=== PATIENT | male | born 1980 | race Caucasian/White ===

== ENCOUNTER 2019-04-14 00:04 | Inpatient (IN) | payer MEDICAID, SELFPAY ==
[2019-04-14] VITALS (17 sets, daily range): BP systolic 107–134; BP diastolic 61–105; PULSE 85–122; RESP 16–31; TEMP 36.2–37.6; O2SAT 92–97; BMI 31.2
--- NOTE | 2019-04-14 00:16 | EKG12_ITS ---
Test Reason : CP Blood Pressure : / mmHG Vent. Rate : 120 BPM Atrial Rate : 120 BPM P-R Int : 138 ms QRS Dur : 090 ms QT Int : 330 ms P-R-T Axes : 031 072 043 degrees QTc Int : 466 ms Sinus tachycardia Possible Left atrial enlargement Nonspecific ST abnormality Abnormal ECG Confirmed by SUSHIL MENSAH, THERESE ([id number]), newspaper editor SNEHA POE ([id number]) on 04/15/2019 10:08:37 AM Referred By: JANETH Confirmed By:THERESE LING MD
--- NOTE | 2019-04-14 00:22 | RAD_ITS ---
STUDY: X-RAY CHEST REASON FOR EXAM: Male, 38 years old. Chest pain. Nausea and headache. TECHNIQUE: AP portable upright COMPARISON: None. FINDINGS: The left lung base is not well seen due to overlying cardiac and chest wall structures. Otherwise the lungs are clear. Cardiac silhouette, franky and mediastinal contours are within normal limits. No acute osseous abnormality. No evidence of free air under the diaphragm. RAD/Chest 1 View (Portable) IMPRESSION: No acute findings. However the left lung base is not well seen and left basilar pneumonia might not be detected on this study. If clinically necessary and if the patient is able, standing PA and lateral chest radiograph would better evaluate. Electronically Signed: Marshall Harp, at 0:41 EST Tel , Service support ,
[2019-04-14 00:34] LABS: Absolute Lymphocyte Count 0.56 X10^3/uL (0.83-4.51); Basophil# 0.02 X10^3/uL; Basophil% 0.2 % (0-1); Eosinophil# 0.01 X10^3/uL; Eosinophils% 0.1 % (0-5); Hematocrit 46.9 % (40-54); Hemoglobin 16.7 g/dL (13.0-16.5); Lymphocyte # 0.56 X10^3/ul (4.0); Lymphocyte % 5.3 % (19-41); Mean Corp Hgb Conc 35.6 g/dL (32-36); Mean Corpuscular Hgb 30.1 pg (27.0-32.0); Mean Corpuscular Volume 84.7 fL (80-94); Monocyte# 1.03 X10^3/uL; Monocyte% 9.7 % (0-10); NRBC Flagged by Analyzer 0 % (0-5); Neutrophil # 8.95 X10^3/uL (2.7-7.7); Neutrophil % 84.3 % (47-70); POSITIVE DIFFERENTIAL YES; Platelet Count 247 K/mm3 (150-450); RBC Distribution Width SD 33.8 fl (35.1-43.9); Red Blood Count 5.54 M/mm3 (4.6-6.2); White Blood Count 10.6 K/mm3 (4.4-11.0)
[2019-04-14 00:35] LABS: Differential Indicated SCAN CRITERIA MET
[2019-04-14 00:49] LABS: Anion Gap 11 (5-15); BUN 5 mg/dL (7-18); BUN/Creat Ratio 9.7 RATIO (10-20); Calcium,Total 9.1 mg/dL (8.5-10.1); Chloride 91 mmol/L (98-107); Creatinine, Serum 0.51 mg/dL (0.70-1.30); EST Glomerular Filtration Rate 193 mL/min (>60); Est Glom Filt Rate - Afr Amer 233 mL/min (>60); Estimated Creatinine Clearance 198.31 ml/min; Glucose 122 mg/dL (74-106); Potassium 3.6 mmol/L (3.5-5.1); Sodium Level 126 mmol/L (136-145)
[2019-04-14 01:07] LABS: Differential Comment SCANNED
[2019-04-14] MEDS: 0.9% Normal Saline 1,000 ML 1000 ML IV (01:18)
[2019-04-14 01:38] LABS: AST(SGOT) 71 U/L (15-37); Alanine Aminotransfer ALT/SGPT 124 U/L (16-61); Albumin, Serum 3.8 g/dL (3.2-5.0); Alkaline Phosphatase 143 U/L (45-117); Bilirubin, Direct 0.51 mg/dL (0.00-0.30); Carbamazepine (Tegretol) 12.8 ug/mL (4.0-12.0); Globulin 4.3 g/dL (2.2-4.2); Lipase 73 U/L (73-393); Protein, Total 8.1 g/dL (6.4-8.2)
[2019-04-14 01:52] LABS: Bacteria 0 SEEN /hpf (None Seen); Mucous, Urine 0 SEEN /hpf (<or=2+); Red Blood Cells-Urine 0 SEEN /hpf (0-5); Squamous Epithelial Cells - UA 0 SEEN /hpf (0-5); White Blood Cells 0 SEEN /hpf (0-5)
[2019-04-14 01:56] LABS: Color, Urine Yellow (Yellow); Glucose, Dipstick Normal (Normal); Leukocyte Esterase-Dipstick Negative /ul (Negative); Nitrite-Dipstick Negative (Negative); Occult Blood-Urine 10 /ul (Negative); Protein-Dipstick 100 mg/dl (Negative); Specific Gravity, Urine 1.015 (1.002-1.030); Urine Bilirubin Dipstick Negative (Negative); Urine Clarity Clear (Clear); Urine Urobilinogen 1 mg/dl (Normal)
[2019-04-14 01:56] LABS: Lactic Acid 0.9 mmol/L (0.4-1.9)
[2019-04-14 01:58] LABS: Ketone-Dipstick 150 mg/dl (Negative)
--- NOTE | 2019-04-14 02:00 | RAD_ITS ---
STUDY: X-RAY CHEST REASON FOR EXAM: Male, 38 years old. Chest pain. Headache and nausea. TECHNIQUE: Lateral chest radiographs. COMPARISON: Frontal radiograph earlier same date. FINDINGS: Lateral view reveals clear lung bases. No acute finding. No evidence of pleural effusion. RAD/Chest 1 View IMPRESSION: Correlating with the frontal radiograph performed earlier there is no evidence of acute cardiopulmonary disease. Electronically Signed: Marshall Harp, at 2:35 EST Tel , Service support ,
--- NOTE | 2019-04-14 04:37 | CT_ITS ---
ACR Level 3 findings have been noted. An addendum which confirms receipt of the report will follow. HISTORY: ABDOM PAIN, NAUSEA, CHEST PAIN, PT PERMANENTLY CONTRACTED, IDEAL POSITIONING IMPOSSIBLE TECHNIQUE: Helically acquired images were obtained of the abdomen and pelvis following the intravenous administration of 100 ML of Isovue-370 Iodinated contrast. 2D reformats. No oral contrast was administered. A radiation dose optimization technique was used for this scan. COMPARISON: No comparison imaging of the abdomen and pelvis FINDINGS: # of images incl. paperwork: 497 LUNG BASES: Small right pleural effusion with minimal basilar atelectasis. Evidence for right hemithorax volume loss compared to the left. CT abdomen: Multilevel degenerative disc disease with facet arthropathy. Scoliosis. Fusion of the anterior longitudinal ligament within the lower thoracic spine. Severe facet arthritis throughout the lower thoracic spine and in the lumbar spine. Shallow acetabulum with remodeling to the femoral heads suggesting the patient is not weightbearing. The gallbladder is enlarged and contains many cholesterol gallstones. No intra-or extrahepatic biliary ductal dilatation perceived. No choledocholithiasis identified. Liver, spleen, pancreas, and adrenal glands, are normal. The kidneys are normal. The aorta is normal. CT pelvis: No ascites is present. The prostate gland is not enlarged. The appendix is not identified. The bladder is is distended to above the umbilicus. I estimate the bladder volume at almost 1 L. There is gaseous distention of loops of colon and small bowel without pathological distention. No bowel wall thickening is perceived CT/Abdomen/Pelvis W IV Cont ONLY IMPRESSION: Distended gallbladder with several cholesterol gallstones suggesting acute cholecystitis. Right hemithorax volume loss with atelectasis and small pleural effusion. Rotoscoliosis. Distended bladder to approximately 1 L in volume. This could be due to a neurogenic bladder and pathologic post void residual. Individualized dose optimization techniques were used for this CT. at 0520 Reported and signed by: Gianfranco Majano MD Electronically Signed: Gianfranco Majano MD at 5:19 EST Tel , Service support ,
--- NOTE | 2019-04-14 05:04 | ED.DCSUM_ITS ---
- ER Visit Summary Date of Service: 04/14/19 Chief Complaint: Chest and epigastric pain along with nausea and fever. History of Present Illness: The patient is a 38 M history of seizure disorder and anxiety. He is on Tegretol along with other medications. According to the patient and his family he had chest and epigastric pain with nausea but without any vomiting or diarrhea. Is been going on since so now is the third day. He has had no diarrhea. No dysuria. No shortness of breath. No history of DVT or PE. No hemoptysis. No new leg swelling or calf pain. Physical Examination: Male no acute distress. Vital signs are stable. His initial temperature is 99.1. He does not look septic or toxic. His pulse ox is 93% on room air no hypoxia. H EENT exam unremarkable. Posterior pharynx moist and pink no erythema or exudate. No trouble swallowing or breathing. No stridor. No drooling. Neck nontender no lymphadenopathy. No meningismus. Lungs clear to auscultation bilaterally. No rales, rhonchi or wheezing. Heart regular rhythm rate about 120 no murmur. Abdomen is soft. Nondistended. Normal bowel sounds. Mild epigastric tenderness. No signs of obstruction. No hernia or masses. No pulsatile mass. No specific right upper or McBurney's point tenderness. No peritoneal signs. Patient moving all 4 extremities. Neurologically is awake. He is alert. He answers questions sometimes his speech is difficult to understand at his baseline. Family is present in room and helping with the history. Test Results: EKG is a sinus tachycardia rate of 120 with no acute signs of IN or ischemia. Chest x-ray shows no acute abnormality 2 views read both myself and the radiologist. CBC shows a white count of 10. Hemoglobin is 16. No bands. Chemistries show a sodium of 126 otherwise normal BUN and creatinine and gap. Liver enzymes are slightly elevated. Lipase is normal UA negative other than serum ketones consistent with dehydration. Troponin is normal. Tegretol level is slightly supratherapeutic at 12.8. Blood cultures are pending and lactic acid is normal at 0.9. He had no significant old labs available for comparison. CAT scan abdomen pelvis with IV contrast only showed multiple gallstones and was consistent with acute cholecystitis. He also had a distended bladder. We did a bladder scan it was over 400 cc and the nurses will place a Cota catheter. He was able to urinate prior to the Cota catheter. Once the Cota catheter was placed he has put out 800 cc of urine through the catheter already. He continues to drain. Emergency Department Course and Treatment: 38-year-old male with reported fever at home abdominal and chest pain. This could obviously be from infectious etiologies. Pneumonia versus atypical cortical presentation versus more likely abdominal pain could be pancreatitis, liver disease gallstones or other etiologies. His labs showed elevated liver enzymes and a mild hyponatremia. A CT abdomen pelvis has been obtained we will waiting for the official read. Patient was treated with a liter normal saline, IV morphine, IV Zofran for nausea and IV Zosyn. Patient treated with a liter normal saline. On repeat exam at 4:37 AM is really no significant change. I went over all test results with he and his family. Treatment Plan: I discussed the patient's diagnosis and test results with the family. I have already spoken to Dr. Juan Alanis on-call for general surgery. He is actually arriving at the hospital shortly and will come in the emergency department evaluate the patient for admission. I also have the hospitalist on page. Disposition: [] Impression: Epigastric abdominal pain Elevated liver enzymes Acute gallstones with acute cholecystitis Hyponatremia with a sodium of 126 Distended bladder secondary to urinary retention This note was generated with [facility] [employer] dictation software. It may contain incorrect words, spelling, and punctuation that were not noted in review of the chart prior to signing ED Disposition - Plan for ED Patient:
[2019-04-14] MEDS: Ondansetron 4 MG/2 ML Vial IV ×2 (05:45→21:13)
[2019-04-14] MEDS: Morphine 4 MG/ML Syringe IV (05:46)
--- NOTE | 2019-04-14 06:03 | HP.PCM_ITS ---
Problem List (1) Cholecystitis, acute with cholelithiasis Status: Acute Qualifiers: Biliary obstruction: without biliary obstruction Qualified Code(s): K80.00 - Calculus of gallbladder with acute cholecystitis without obstruction (2) Cerebral palsy Status: Acute Qualifiers: Cerebral palsy type: spastic quadriplegic Qualified Code(s): G80.0 - Spastic quadriplegic cerebral palsy (3) Seizure disorder Status: Acute (4) Urinary retention Status: Acute (5) Degenerative disc disease Status: Acute History of Present Illness Date of Admission: 04/14/19 The patient is a 38 year old M who has not had a normal appetite for the past 2 weeks. For the past 3 days he has been complaining of abdominal pain and yesterday afternoon was absolutely moaning and abdominal pain. Fever was noted as well. He was brought to the emergency room at midnight. He was noted to have a pulse ox of 93% on room air and he was tachycardic to 120. He is hemoconcentrated to a hemoglobin of 16.7. Left shift of 84% neutrophils. Liver function tests are abnormal with a total bilirubin 1.3 direct room 0.5 AST 71 ALT 124 alkaline phosphatase [address] scan was done multiple abnormalities. He has a right pleural effusion with bibasilar atelectasis and right hemithorax volume loss. Multiple areas of degenerative disc disease. Gallbladder is enlarged control contains multiple stones. No choledocholithiasis or ductal dilatation identified. No ascites identified. The urinary bladder however is distended to above the umbilicus. This estimated to have 1 L of fluid He has not had previous abdominal surgery. He is not able to communicate clearly with description of his illness. By parents he has typically normal stool once daily. He has not had a bowel movement for 3 days Past Medical History Allergies No Known Allergies Allergy (Verified 04/14/19 00:10) Home Medications: Ambulatory Orders Medication Instructions Recorded Carbamazepine [Tegretol] 200 mg PO BIDCM 04/14/19 Lorazepam 1 mg PO BID 04/14/19 Quetiapine Fumarate [Seroquel] 50 mg PO BID 04/14/19 Surgical History: - - History of left hip dislocation requiring surgery approximately age 11 Smoking Status: Never smoker Tobacco Use: Cigarettes Review of Systems Constitutional: Reports: Anorexia Cardiovascular: Reports: - - Low chest epigastric pain Respiratory: Denies: Cough Gastrointestinal: Reports: Abdominal Pain Comment: No history of DVT VTE Information - Inpt Only VTE Present on Admission: No Patient Problems: Active and Suspected Problems Cholecystitis, acute with cholelithiasis (Acute) Cerebral palsy (Acute) Seizure disorder (Acute) Urinary retention (Acute) Degenerative disc disease (Acute) - Physical Exam Vitals/I&O's: Vital Signs Temp Pulse Resp BP Pulse Ox 99.6 F H 111 H 24 H 131/98 H 97 04/14/19 05:59 04/14/19 05:59 04/14/19 05:59 04/14/19 05:59 04/14/19 05:59 Oxygen Flow Rate (L/min) 2 Oxygen Delivery Method Room Air Weight: 211 lb 6.773 oz Body Mass Index (BMI) 31.2 Intake and Output for Last 24 Hours 04/12/19 04/13/19 04/14/19 23:59 23:59 23:59 Intake Total 1000 / 1000 Output Total 400 / 400 Balance 600 / 600 General: Alert HEENT: - - Neck is supple, carotids are 3+, no gross carotid bruits Oral: Moist Mucosa Lungs: - - Diminished respiratory excursion bilaterally, clear in the apices Cardiovascular: Regular rate, Regular Rhythm Abdomen: Soft, Bowel Sounds Not Present, - - Tender right upper quadrant, no mass Extremities: - - Plastic retraction right upper extremity and bilateral lower extremities Mild nonpitting swelling bilateral lower extremities Neurological: - - I am not able to obtain a consistent history or primary complaint from the patient Laboratory Results 04/14/19 00:20: WBC 10.6, RBC 5.54, Hgb 16.7 H, Hct 46.9, MCV 84.7, MCH 30.1, MCHC 35.6, RDW Std Deviation 33.8 L, RDW Coeff of Robert 11.0 L, Plt Count 247, MPV 9.0, Immature Gran % (Auto) 0.400, Neut % (Auto) 84.3 H, Lymph % (Auto) 5.3 L, [place] % (Auto) 9.7, Eos % (Auto) 0.1, Baso % (Auto) 0.2, Absolute Neuts (auto) 9.0 H, Absolute Lymphs (auto) 0.56 L, Nucleated RBC % 0, Differential Comment SCANNED 04/14/19 00:20: Sodium 126 L, Potassium 3.6, Chloride 91 L, Carbon Dioxide 24.0, Anion Gap 11, BUN 5 L, Creatinine 0.51 L, Estim Creat Clear Calc 198.31, Est GFR (MDRD) Af Amer 233, Est GFR (MDRD) Non-Af 193, BUN/Creatinine Ratio 9.7 L, Glucose 122 H, Calcium 9.1, Troponin I < 0.015 04/14/19 00:20: Total Bilirubin 1.30 H, Direct Bilirubin 0.51 H, AST 71 H, ALT 124 H, Alkaline Phosphatase 143 H, Total Protein 8.1, Albumin 3.8, Globulin 4.3 H, Lipase 73 04/14/19 00:20: Carbamazepine 12.8 H 04/14/19 01:09: Lactic Acid 0.9 04/14/19 01:46: Urine Color Yellow, Urine Clarity Clear, Urine pH 8.0, Ur Specific [place] 1.015, Urine Protein 100 H, Urine Glucose (UA) Normal, Urine Ketones 150 H, Urine Occult Blood 10 H, Urine Nitrite Negative, Urine Bilirubin Negative, Urine Urobilinogen 1 H, Ur Leukocyte Esterase Negative, Urine RBC 0 SEEN, Urine WBC 0 SEEN, Ur Squamous Epith Cells 0 SEEN, Urine Bacteria 0 SEEN, Urine Mucus 0 SEEN Current Medications Piperacillin Sod/Tazobactam (Sod 4.5 gm/ Sodium Chloride) 100 mls @ 200 mls/hr IV X1 ONE Stop: 04/14/19 06:09 Assessment/Plan All Active Problems Cholecystitis, acute with cholelithiasis (Acute) Cerebral palsy (Acute) Seizure disorder (Acute) Urinary retention (Acute) Degenerative disc disease (Acute) 38-year-old gentleman with a 2-week history of anorexia 3-day history of severe abdominal pain with fever. Findings on CT imaging and laboratory consistent with acute cholecystitis cholelithiasis. Unfortunately the patient is not able to participate in his description of illness or wellbeing. He is accompanied by his parents I recommended them a laparoscopic cholecystectomy with selective cholangiography. I have discussed technique, benefit, risks, alternatives. No guarantees of success have been offered. We discussed possible conversion to an open technique. We discussed possible inability to perform the cholecystectomy and have to convert to a drainage procedure. They have had an opportunity to ask and have questions answered. It appears that the patient's been unwell to some degree for 2 weeks and acutely ill for 3 days. We will proceed directly today with surgery. The patient has severe urinary retention to a liter. Cota catheter was placed. Urologic consultation will be required. The patient has enough medical c omorbidities and illnesses that I will consult hospitalist services to assist with medical management. Juan Alanis M.D., F.A.C.S.
--- NOTE | 2019-04-14 07:19 | DCINST_ITS ---
Discharge Diet: Light diet - advance as tolerated - if you have questions about your diet instructions, please talk to you doctor. Discharge Activity: May Not Drive - for 1 week or while taking narcotic pain medicine., - - May sponge bathe. Please do not tub bathe for at least 3 days to allow the drain site to completely heal. May shower in (days): 1 Lifting Restrictions: 10 pounds Call your doctor if your incision/area has: Continuous Slow Oozing, Sudden I ncreased Bleeding, Increased Pain/ Swelling, Increased Redness, Foul Smelling Discharge Call your doctor if you observe: Fever of 101 or Higher Suture Line Care: Avoid Pulling/Pushing, Avoid Pinching/Bending Additional Dressing/Incision Instructions:: Change or remove dressing in 4 days. Leave steri-strips in place for 1 week. Additional Instructions: If Hector is progressing well then office follow-up at 10 days will not be mandatory. If there are are any concerns then contact in the office or office follow-up with the patient would be appropriate. Please call and contact the office as you need. Allergies/Adverse Reactions: Allergies No Known Allergies Allergy (Verified 04/14/19 00:10) Medications to take at Discharge Carbamazepine [Tegretol] 200 mg PO BIDCM 04/14/19 Lorazepam 1 mg PO BID 04/14/19 Quetiapine Fumarate [Seroquel] 50 mg PO BID 04/14/19 Primary Care Physician: Juan Crenshaw MD [Primary Care Provider] - Test Results: Test results from this visit will be discussed in further detail at your follow- up appointment, if applicable. Please Follow Up With: Juan Alanis MD - [phone] When: Call to make an appointment to be seen in about 10 days.
--- NOTE | 2019-04-14 07:30 | GALL_PTH ---
PATIENT: CAMI COOPER LOC: [facility]3 U#:[id number] AGE/SX: 38/M ROOM: ID320 RE04/14/[address]: Dr. Eulogio Keita MD : 1980 BED: 1 DIS: 04/15/2019 SPEC #: [id number] RECD: 04/15/19 07:27 STATUS: MEDINA REGerri #: [id number] ALO: 04/14/19 07:[address]: Juan Alanis DEPT: SURGICAL PATHOLOGY RECD BY: Denny Lay ENTERED: 04/15/19 08:54 SP TYPE: [facility] SANDERS DR: MD Dr. Eulogio Kapadia MD Dr. Nicholas F Kotsonis, MD Dr. Robert Hart, MD Tissues: Gallbladder, NOS Procedures: Surgery Specimen Level III HEADER OPERATION: Laparoscopic cholecystectomy with IOC PRE-OP DIAGNOSIS: Acute cholecystitis with cholelithiasis TISSUE SUBMITTED: Gallbladder MICROSCOPIC DIAGNOSIS Gallbladder, cholecystectomy: Chronic cholecystitis and cholelithiasis. AM:gigi 04/16/19 MICROSCOPIC DESCRIPTION Slides are reviewed. GROSS DESCRIPTION Received is one container labeled with the patient's name and designated gallbladder. The specimen consists of a gallbladder measuring 11 cm in length and up to 3 cm in diameter. The external surface is pink-dunlap, smooth and glistening for the most part. Focally it is granular, hemorrhagic and contains cautery artifact. The gallbladder contains green-yellow mucoid bile and multiple, multifaceted to round stones measuring in aggregate 6.5 x 4.5 x 3 cm and 2.5 cm in greatest dimension. The mucosa is bile-stained and without any mass lesions. The gallbladder wall measures up to 0.2 cm in thickness. Template Worker sections from the gallbladder and the cystic duct are submitted in one cassette. / SJ:gigi 04/15/19 TC:3 CPT: 46290
--- NOTE | 2019-04-14 07:50 | RAD_ITS ---
CLINICAL HISTORY: Male, 38 years old. Pain PROCEDURE: CHOLANGIOGRAM - intraoperative FLUOROSCOPY TIME (if supplied): (0/14) minutes/seconds TECHNIQUE: ( single cine loop) FINDINGS: Contrast is seen within common bile duct and nondilated intrahepatic biliary ducts and extending into the duodenum. RAD/Cholangiogram/ O R,Initial IMPRESSION: Intraoperative fluoroscopy. Electronically Signed: Tanmay Powell MD at 12:48 EST , Service support ,
[2019-04-14] MEDS: Lactated Ringers 1,000 ML 70 ML IV ×2 (08:45→10:05)
[2019-04-14] MEDS: Bupivacaine Mpf 0.5% 30 ML VIAL (09:13)
--- NOTE | 2019-04-14 09:26 | OP.PCM_ITS ---
Problem List (1) Cholecystitis, acute with cholelithiasis Status: Acute Qualifiers: Biliary obstruction: without biliary obstruction Qualified Code(s): K80.00 - Calculus of gallbladder with acute cholecystitis without obstruction (2) Cerebral palsy Status: Acute Qualifiers: Cerebral palsy type: spastic quadriplegic Qualified Code(s): G80.0 - Spastic quadriplegic cerebral palsy (3) Seizure disorder Status: Acute (4) Urinary retention Status: Acute (5) Degenerative disc disease Status: Acute Report of Operation Date of Procedure: 04/14/19 Pre-Operative Diagnosis: Acute cholecystitis cholelithiasis, severe urinary retention Post-Operative Diagnosis: Acute cholecystitis cholelithiasis, severe urinary retention, umbilical hernia Surgery/Procedure Performed:: Laparoscopic cholecystectomy with cholangiograms Description of Surgical Findings:: Timeout informed consent was obtained. 38-year-old gent was taken the operating. He received Zosyn in the emergency room preoperatively. He underwent general endotracheal intubation esthesia. He was carefully positioned on the operating table to support both arms with careful padding. He has a spastic quadriplegia involving 3 extremities right upper extremity and bilateral lower extremities. They were padded and supported. Then the abdomen was s terilely prepped and draped. 0.5% Marcaine was used as local anesthetic. Throughout the procedure total 30 cc was used. Skin sites were pre- anesthetized. I avoided the umbilical hernia and made a supraumbilical vertical incision sharp dissection carried down through subcu tissue holding sutures of 0 Vicryl placed varies and inserted saline drop test performed the abdomen was insufflated with CO2 to a pressure of 10 to smoker pressure 5-minute trochars were placed in the epigastric mid abdomen right upper quadrant. The gallbladder was noted to be tightly distended had multiple stones significant amount of fibrofatty tissue. With effort the gallbladder was carefully elevated with retraction blunt dissection was used to and at the infundibulum tedious careful aqua dissection blunt dissection was performed to the amount of fibrofatty change and inflammation. Finally the cystic artery and cystic duct identified. Made an incision in the cystic duct through a 14-gauge Angiocath inserted cholangiogram catheter and fluoroscopic and cholangiograms demonstrating very small ductal anatomy free of free fluid in the small bowel. Cholangiogram cath was removed to lock clips were placed on the cystic duct prior to transecting it the cystic artery was clipped twice proximally once distally prior to transecting it gallbladder was dissected free from the liver bed this also was a very tedious. The liver bed was very fragile where needed hemostasis was obtained with electrocautery. Very small amount of bile spillage was rapidly controlled there was [place] no stone spillage. The gallbladder was then immediately placed in a retrieval bag. The right upper quadrant was copiously irrigated and aspirated free of excess fluid and blood. The gallbladder bed was made hemostatic by placing FloSeal followed by 2 pieces of fibrillar. Pressure was then held for hemostasis. A 15 round KEN drain was exited through the right lateral trocar site and was placed to the subhepatic space. Inspection revealed that the liver bed was hemostatic at this time. The gallbladder was exited the umbilicus but slightly enlarging the fascial incision. The fascia was approximated with 2 [id number] sutures of 0 Vicryl. Skin edges approximate interrupted 4 Monocryl subdermal stitches. Steri-Strips Telfa OpSite dressings applied. Sponge and instrument and needle counts were reported to the surgeon be correct. Blood loss proximal 100 cc. Specimens gallbladder. Drains 15 round KEN. He was taken to the recovery area in satisfactory addition without apparent complication Juan Alanis M.D., F.A.C.S. Type of Anesthesia:: General Anesthesiologist: Joan Saenz
[2019-04-14] MEDS: LORazepam 1 MG Tablet PO ×2 (12:30→21:21)
--- NOTE | 2019-04-14 13:43 | PCM.PN.HOSP ---
Patient Problems: Active and Suspected Problems Cholecystitis, acute with cholelithiasis (Acute) Cerebral palsy (Acute) Seizure disorder (Acute) Urinary retention (Acute) Degenerative disc disease (Acute) Subjective: 38-year-old male with a history of cerebral palsy and a seizure disorder presents with right upper quadrant abdominal pain for about [address] weeks[address] He had a CT scan which demonstrated a cystitis and had a lap sheila with a KEN placed today. Medicine was consulted for his history of seizures as well as urinary retention. Prior to surgery at about liter of urine and a Cota was placed successfully. He unfortunately speaks [place] only and therefore the history was obtained through translation by his brother. He is feeling much better today since having surgery. Point of the brother he has not had a seizure in about 4 months and no changes were made to his medication regimen at that time. He is on Tegretol, Ativan, Seroquel. He denies any symptoms of shortness of breath, lightheadedness, dizziness. Vitals/I&O's: Vital Signs Temp Pulse Resp BP Pulse Ox 97.2 F L 85 16 109/61 96 04/14/19 10:28 04/14/19 10:28 04/14/19 10:28 04/14/19 10:28 04/14/19 10:28 Oxygen Flow Rate (L/min) 2 Oxygen Delivery Method Nasal Cannula Weight: 211 lb 6.773 oz Body Mass Index (BMI) 31.2 Intake and Output for Last 24 Hours 04/12/19 04/13/19 04/14/19 23:59 23:59 23:59 Intake Total 1693.33 / 1693.33 Output Total 1575 / 1575 Balance 118.33 / 118.33 General: Alert, Oriented x3, Cooperative, No apparent distress, - - Only speaks comfortably in adduction HEENT: Atraumatic, PERRLA, EOMI, Normocephalic Oral: Dry Mucosa Neck: Supple, No JVD Lungs: Clear to auscultation, Normal air movement, No rhonchi, No wheeze, No rales Cardiovascular: Regular rate, Regular Rhythm, Normal S1, Normal S2, No murmurs Abdomen: Soft, Non-Distended, No Hepato-splenomegaly, Tender - Minimally tender around the incisions Extremities: No edema, Capillary Refill Less than 3 Seconds Skin: No rashes, Incision - Dressings are in place, KEN tubes in place Musculoskeletal: - - Chronic upper and lower extremity deformity secondary to CP Neurological: Neuro grossly intact, Sensory exam intact to light touch and pain Psych/Mental Status: Normal Affect, Appropriate Laboratory Results 04/14/19 00:20: WBC 10.6, RBC 5.54, Hgb 16.7 H, Hct 46.9, MCV 84.7, MCH 30.1, MCHC 35.6, RDW Std Deviation 33.8 L, RDW Coeff of Robert 11.0 L, Plt Count 247, MPV 9.0, Immature Gran % (Auto) 0.400, Neut % (Auto) 84.3 H, Lymph % (Auto) 5.3 L, [place] % (Auto) 9.7, Eos % (Auto) 0.1, Baso % (Auto) 0.2, Absolute Neuts (auto) 9.0 H, Absolute Lymphs (auto) 0.56 L, Nucleated RBC % 0, Differential Comment SCANNED 04/14/19 00:20: Sodium 126 L, Potassium 3.6, Chloride 91 L, Carbon Dioxide 24.0, Anion Gap 11, BUN 5 L, Creatinine 0.51 L, Estim Creat Clear Calc 198.31, Est GFR (MDRD) Af Amer 233, Est GFR (MDRD) Non-Af 193, BUN/Creatinine Ratio 9.7 L, Glucose 122 H, Calcium 9.1, Troponin I < 0.015 04/14/19 00:20: Total Bilirubin 1.30 H, Direct Bilirubin 0.51 H, AST 71 H, ALT 124 H, Alkaline Phosphatase 143 H, Total Protein 8.1, Albumin 3.8, Globulin 4.3 H, Lipase 73 04/14/19 00:20: Carbamazepine 12.8 H 04/14/19 01:09: Lactic Acid 0.9 04/14/19 01:46: Urine Color Yellow, Urine Clarity Clear, Urine pH 8.0, Ur Specific [place] 1.015, Urine Protein 100 H, Urine Glucose (UA) Normal, Urine Ketones 150 H, Urine Occult Blood 10 H, Urine Nitrite Negative, Urine Bilirubin Negative, Urine Urobilinogen 1 H, Ur Leukocyte Esterase Negative, Urine RBC 0 SEEN, Urine WBC 0 SEEN, Ur Squamous Epith Cells 0 SEEN, Urine Bacteria 0 SEEN, Urine Mucus 0 SEEN Current Medications Acetaminophen (Tylenol) 650 mg PO Q6H PRN PRN PRN Reason: Pain Score 1-10/10 Hydrocodone Bitart/Acetaminophen ([place] 5mg-325mg) 1 - 2 tablet PO Q4H PRN PRN PRN Reason: Pain Score 1-10/10 [facility] Docusate Sodium (Colace) 100 mg PO BID [facility] Piperacillin Sod/Tazobactam (Sod 3.375 gm/ Sodium Chloride) 50 mls @ 12.5 mls/hr IV Q8 [facility] Stop: 04/15/19 01:59 Lactated Ringer's () 1,000 mls @ 70 mls/hr IV .[id number] [facility] Last Admin: 04/14/19 10:05 Dose: 70 mls/hr Documented by: Lorazepam (Ativan) 1 mg PO BID [facility] Last Admin: 04/14/19 12:30 Dose: 1 mg Documented by: Morphine Sulfate () 2 - 4 mg IV Q2H PRN PRN PRN Reason: Pain Score 1-10/10 Morphine Sulfate () 2 - 4 mg IV Q2H PRN PRN PRN Reason: Pain Score 1-10/10 Ondansetron HCl (Zofran) 4 mg IV Q8H PRN PRN PRN Reason: nausea Quetiapine Fumarate (Seroquel) 50 mg PO BID [facility] Sodium Chloride () 10 - 40 ml IV UD PRN PRN Reason: SALINE FLUSH Tamsulosin HCl (Flomax) 0.4 mg PO DAILY@1730 [facility] STROKE Vital Signs/Narrative: Vital Signs Temp Pulse Resp BP Pulse Ox 04/14/19 10:28 97.2 F L 85 16 109/61 96 04/14/19 10:04 98.9 F 86 18 126/70 H 95 04/14/19 09:45 97 18 119/71 96 Medical Necessity - Tobacco Use Smoking Status: Never smoker Tobacco Use: Cigarettes Assessment/Plan All Active Problems Cholecystitis, acute with cholelithiasis (Acute) Cerebral palsy (Acute) Seizure disorder (Acute) Urinary retention (Acute) Degenerative disc disease (Acute) 1. Acute cholecystitis -Pain management per primary -Continue with Zosyn -Fluids per primary -Diet per primary 2. Urinary retention -To the family this happens on occasion at least it appears to. -We will start Flomax -Can remove Cota tomorrow and try voiding trial -If that fails would consult urology at that time for outpatient follow-up 3. Seizure disorder/CP -This appears to be stable per the family -Continue with Tegretol and Ativan as well as Seroquel -He is not showing any signs at this time of toxicity and this has been a stable dose for him 4. Constipation -He does go fairly regularly but it can be a struggle -We will add Colace and monitor DVT: SCDs Code Visit OBSV E&M: 31009 Subsequent observation care L3
[2019-04-14] MEDS: 0.9% Saline Lock 10 ML Syringe IV ×4 (14:04→21:13)
[2019-04-14] MEDS: Tamsulosin HCl 0.4 MG Capsule PO (16:43)
[2019-04-14] MEDS: carBAMazepine 200 MG Tablet PO (16:43)
[2019-04-14] MEDS: Lactated Ringers 1,000 ML 100 ML IV (16:45)
[2019-04-14] MEDS: BENZOCAINE/MENTHOL 1 LOZENGE MUCOUS MEM ×2 (16:52→19:48)
[2019-04-14] MEDS: Morphine 2 MG/ML Syringe IV ×2 (17:14→21:13)
--- NOTE | 2019-04-14 20:10 | NURSING ---
Radha DELUNA advised that pt was c/o chest pain. VS are stable. When I went back to the room, the family verified pt's complaint that he was hurting in his sternal area which is where the pt was pointing. [facility] notified of need for EKG.
--- NOTE | 2019-04-14 20:55 | EKG12_ITS ---
Test Reason : CP Blood Pressure : / mmHG Vent. Rate : 099 BPM Atrial Rate : 099 BPM P-R Int : 124 ms QRS Dur : 090 ms QT Int : 336 ms P-R-T Axes : 027 -10 068 degrees QTc Int : 431 ms Normal sinus rhythm Nonspecific ST and T wave abnormality Abnormal ECG Confirmed by PARIS MENSAH, KVNG ([id number]), senior editor NOY CHAMBERLAIN ([id number]) on 04/16/2019 10:28:15 AM Referred By: AGVIOTA Confirmed By:KVNG TOLEDO MD
[2019-04-14] MEDS: Pantoprazole Sodium 40 MG Tablet PO (21:21)
[2019-04-14] MEDS: QUEtiapine 25 MG Tablet 50 MG PO (21:21)
[2019-04-14] MEDS: Docusate Sodium 100 MG Capsule PO (21:22)
[2019-04-15 02:00] VITALS: BP 101/55; PULSE 103; RESP 16; TEMP 37; O2SAT 94
[2019-04-15] MEDS: Lactated Ringers 1,000 ML 100 ML IV (02:32)
[2019-04-15] MEDS: Acetaminophen 325 MG Tablet 650 MG PO ×2 (02:32→13:32)
[2019-04-15 02:55] LABS: Absolute Neutrophil Count 4.4 X10^3/uL (2.0-7.7); Eosinophil# 0.01 X10^3/uL; Eosinophils% 0.1 % (0-5); Hematocrit 37.6 % (40-54); Hemoglobin 12.9 g/dL (13.0-16.5); Lymphocyte % 20.8 % (19-41); Mean Corp Hgb Conc 34.3 g/dL (32-36); Mean Corpuscular Hgb 30.1 pg (27.0-32.0); Mean Corpuscular Volume 87.6 fL (80-94); Mean Platelet Vol. 8.5 fl (6.2-12.0); Monocyte# 0.91 X10^3/uL; Monocyte% 13.5 % (0-10); NRBC Flagged by Analyzer 0 % (0-5); Neutrophil # 4.41 X10^3/uL (2.7-7.7); Neutrophil % 65.5 % (47-70); Platelet Count 199 K/mm3 (150-450); RBC Distribution Width CV 11.6 % (11.6-14.6); RBC Distribution Width SD 37.2 fl (35.1-43.9); Red Blood Count 4.29 M/mm3 (4.6-6.2); White Blood Count 6.7 K/mm3 (4.4-11.0)
[2019-04-15 03:15] LABS: ALB/GLOB Ratio 0.8 RATIO (0.9-2.4); AST(SGOT) 64 U/L (15-37); Alanine Aminotransfer ALT/SGPT 139 U/L (16-61); Albumin, Serum 2.8 g/dL (3.2-5.0); Alkaline Phosphatase 104 U/L (45-117); Anion Gap 10 (5-15); BUN 6 mg/dL (7-18); BUN/Creat Ratio 14.4 RATIO (10-20); Calcium,Total 8.2 mg/dL (8.5-10.1); Chloride 103 mmol/L (98-107); Creatinine, Serum 0.42 mg/dL (0.70-1.30); EST Glomerular Filtration Rate 244 mL/min (>60); Est Glom Filt Rate - Afr Amer 295 mL/min (>60); Estimated Creatinine Clearance 240.81 ml/min; Globulin 3.3 g/dL (2.2-4.2); Glucose 93 mg/dL (74-106); Potassium 3.3 mmol/L (3.5-5.1); Protein, Total 6.1 g/dL (6.4-8.2); Sodium Level 138 mmol/L (136-145)
--- NOTE | 2019-04-15 05:20 | PCM.PN.BLA ---
Progress Note Notified of patient's complaints of chest pain. Reflex EKG done showed T wave changes in the anterior lateral leads. Will trend troponins, 2D echo, consider cardiology consult if T wave changes still persistent. STROKE Vital Signs/Narrative: Vital Signs Temp Pulse Resp BP Pulse Ox 04/15/19 02:00 98.6 F 103 H 16 101/55 L 94
[2019-04-15 05:30] VITALS: BP 122/68; PULSE 104; RESP 18; TEMP 36.8; O2SAT 93
--- NOTE | 2019-04-15 05:55 | EKG12_ITS ---
Test Reason : AM EKG Blood Pressure : / mmHG Vent. Rate : 107 BPM Atrial Rate : 107 BPM P-R Int : 132 ms QRS Dur : 090 ms QT Int : 356 ms P-R-T Axes : 029 -10 030 degrees QTc Int : 475 ms Sinus tachycardia Nonspecific T wave abnormality Abnormal ECG When compared with ECG of 14-APR-2019 20:22, MANUAL COMPARISON REQUIRED, DATA IS UNCONFIRMED Confirmed by PARIS MENSAH, KVNG ([id number]), art editor NOY CHAMBERLAIN ([id number]) on 04/16/2019 10:27:35 AM Referred By: MATEO Confirmed By:KVNG TOLEDO MD
--- NOTE | 2019-04-15 06:54 | PCM.PN.SRG ---
Patient Problems: Active and Suspected Problems Cholecystitis, acute with cholelithiasis (Acute) Cerebral palsy (Acute) Seizure disorder (Acute) Urinary retention (Acute) Degenerative disc disease (Acute) Subjective: No specific complaints today. Sore throat is improved. Chest discomfort improved. Abdominal discomfort improved. - Physical Exam Vitals/I&O's: Vital Signs Temp Pulse Resp BP Pulse Ox 98.2 F 104 H 18 122/68 H 93 04/15/19 05:30 04/15/19 05:30 04/15/19 05:30 04/15/19 05:30 04/15/19 05:30 Oxygen Flow Rate (L/min) 2 Oxygen Delivery Method Room Air Weight: 211 lb 6.773 oz Body Mass Index (BMI) 31.2 Intake and Output for Last 24 Hours 04/13/19 04/14/19 04/15/19 23:59 23:59 23:59 Intake Total 2895.66 / 3095.66 1378.33 / 1378.33 Output Total 2055 / 2330 445 / 445 Balance 840.66 / 765.66 933.33 / 933.33 Abdomen: Bowel Sounds Present, Soft, Non Tender - Minimal KEN output, nonbilious Laboratory Results 04/14/19 21:03: Troponin I < 0.015 04/14/19 23:50: Troponin I < 0.015 04/15/19 02:40: WBC 6.7, RBC 4.29 L, Hgb 12.9 L, Hct 37.6 L, MCV 87.6, MCH 30.1, MCHC 34.3, RDW Std Deviation 37.2, RDW Coeff of Robert 11.6, Plt Count 199, MPV 8.5, Immature Gran % (Auto) 0.100, Neut % (Auto) 65.5, Lymph % (Auto) 20.8, [place] % (Auto) 13.5 H, Eos % (Auto) 0.1, Baso % (Auto) 0.0, Absolute Neuts (auto) 4.4, Absolute Lymphs (auto) 1.40, Nucleated RBC % 0 04/15/19 02:40: Sodium 138, Potassium 3.3 L, Chloride 103, Carbon Dioxide 25.0, Anion Gap 10, BUN 6 L, Creatinine 0.42 L, Estim Creat Clear Calc 240.81, Est GFR (MDRD) Af Amer 295, Est GFR (MDRD) Non-Af 244, BUN/Creatinine Ratio 14.4, Glucose 93, Calcium 8.2 L, Total Bilirubin 0.80, AST 64 H, ALT 139 H, Alkaline Phosphatase 104, Total Protein 6.1 L, Albumin 2.8 L, Globulin 3.3, Albumin/Globulin Ratio 0.8 L 04/15/19 02:40: Troponin I < 0.015 Current Medications Acetaminophen (Tylenol) 650 mg PO Q6H PRN PRN PRN Reason: Pain Score 1-10/10 Last Admin: 04/15/19 02:32 Dose: 650 mg Documented by: Hydrocodone Bitart/Acetaminophen ([place] 5mg-325mg) 1 - 2 tablet PO Q4H PRN PRN PRN Reason: Pain Score 1-10/10 [facility] Last Admin: 04/14/19 16:43 Dose: 200 mg Documented by: Docusate Sodium (Colace) 100 mg PO BID [facility] Last Admin: 04/14/19 21:22 Dose: 100 mg Documented by: Lactated Ringer's () 1,000 mls @ 100 mls/hr IV .Q10H [facility] Last Admin: 04/15/19 02:32 Dose: 100 mls/hr Documented by: Lorazepam (Ativan) 1 mg PO BID [facility] Last Admin: 04/14/19 21:21 Dose: 1 mg Documented by: Morphine Sulfate () 2 - 4 mg IV Q2H PRN PRN PRN Reason: Pain Score 1-10/10 Last Admin: 04/14/19 21:13 Dose: 2 mg Documented by: Morphine Sulfate () 2 - 4 mg IV Q2H PRN PRN PRN Reason: Pain Score 1-10/10 Nitroglycerin (Nitrostat) 0.4 mg SUBLINGUAL Q5M PRN PRN Reason: CARDIAC/CHEST PAIN Ondansetron HCl (Zofran) 4 mg IV Q8H PRN PRN PRN Reason: nausea Last Admin: 04/14/19 21:13 Dose: 4 mg Documented by: Pantoprazole Sodium (Protonix) 40 mg PO DAILY [facility] Last Admin: 04/14/19 21:21 Dose: 40 mg Documented by: Quetiapine Fumarate (Seroquel) 50 mg PO BID [facility] Last Admin: 04/14/19 21:21 Dose: 50 mg Documented by: Sodium Chloride () 10 - 40 ml IV UD PRN PRN Reason: SALINE FLUSH Last Admin: 04/14/19 21:13 Dose: 20 ml Documented by: Tamsulosin HCl (Flomax) 0.4 mg PO DAILY@1730 [facility] Last Admin: 04/14/19 16:43 Dose: 0.4 mg Documented by: Throat Lozenges (Cepacol Sore Throat Lozenge) 1 lozenge MUCOUS MEM Q1H PRN PRN PRN Reason: SORE THROAT Last Admin: 04/14/19 19:48 Dose: 1 lozenge Documented by: Medical Necessity - Tobacco Use Smoking Status: Never smoker Tobacco Use: Cigarettes Assessment/Plan All Active Problems Cholecystitis, acute with cholelithiasis (Acute) Cerebral palsy (Acute) Seizure disorder (Acute) Urinary retention (Acute) Degenerative disc disease (Acute) Cota catheter is been removed. I suspect the patient will continue to have significant retention and catheter will need to be replaced and outpatient urology follow-up scheduled KEN is removed. Laboratory has been reviewed and is stable. Patient ready for surgical discharge Episode of chest discomfort although quite typical with laparoscopic work with normal troponins it is unclear to me the significance of the EKG findings. Will defer to medicine as to whether inpatient or further outpatient evaluation requires investigation.
--- NOTE | 2019-04-15 08:05 | CON.PCM_ITS ---
Reason for Consult Date of Consultation: 04/15/19 Reason for Consultation: Abnormal EKG History of Present Illness: The patient is a 38 year old M with a history of cerebral palsy and a seizure disorder presents with right upper quadrant abdominal pain for about 2 weeks. He had a CT scan which demonstrated a cholecystitis and had a laparoscopic cholecystectomy with KEN drain placement. Medicine was consulted for his history of seizures as well as urinary retention. Prior to surgery at about liter of urine and a Cota was placed successfully. He unfortunately speaks [place] only and therefore the history was obtained through translation by his brother. He is feeling much better today since having surgery. Point of the brother he has not had a seizure in about 4 months and no changes were made to his medication regimen at that time. He is on Tegretol, Ativan, Seroquel. He denies any symptoms of shortness of breath, lightheadedness, dizziness. He had an episode of atypical chest discomfort yesterday an EKG was done nonspecific EKG changes were noted and cardiology was called for further evaluation and management. He has had no further chest pain and no previous cardiac history. Past Medical History Allergies/Adverse Reactions: Allergies No Known Allergies Allergy (Verified 04/14/19 00:10) Home Medications: Ambulatory Orders Medication Instructions Recorded Carbamazepine [Tegretol] 200 mg PO BIDCM 04/14/19 Lorazepam 1 mg PO BID 04/14/19 Quetiapine Fumarate [Seroquel] 50 mg PO BID 04/14/19 Surgical History: cholecystectomy, - - History of left hip dislocation requiring surgery approximately age 11 Lives: With Family Smoking Status: Never smoker Tobacco Use: Cigarettes Alcohol: None Drugs: None Review of Systems - Review of Systems General: Reports: Fever. Denies: Fatigue, Night Sweats HEENT: Denies: Vision Change Cardiovascular: Reports: Chest Discomfort. Denies: Shortness of Breath, Orthopnea, PND, Peripheral Edema, Palpitations, Lightheadedness, Dizziness, Near Syncope, Syncope Respiratory: Denies: Cough, Sputum Production, Hemoptysis Gastrointestinal: Denies: Hematemesis, Hematochezia, Melena Genitourinary: Denies: Dysuria, Hematuria Muscoloskeletal: Denies: Myalgias Skin: Denies: Rash Neurological: Denies: Dizziness Psychiatric: Denies: Anxiety Endocrine: Denies: Heat Intolerance Hematologic/ Lymphatic: Denies: Anemia Subjectve: Pleasant gentleman in no distress does not look uncomfortable Objective: Vital Signs Temp Pulse Resp BP Pulse Ox 98.2 F 104 H 18 122/68 H 93 04/15/19 05:30 04/15/19 05:30 04/15/19 05:30 04/15/19 05:30 04/15/19 05:30 Oxygen Flow Rate (L/min) 2 Oxygen Delivery Method Room Air Weight: 211 lb 6.773 oz Body Mass Index (BMI) 31.2 Intake and Output for Last 24 Hours 04/13/19 04/14/19 04/15/19 23:59 23:59 23:59 Intake Total 2895.66 / 3095.66 1378.33 / 1378.33 Output Total 2055 / 2330 445 / 445 Balance 840.66 / 765.66 933.33 / 933.33 General: Awake, Alert, Cooperative HEENT: PERRL, EOMI, Sclera Non Icteric Neck: Supple, Good ROM, No Lymph Node Enlargement Lungs: Clear to auscultation Cardiovascular: Regular Rhythm, Normal S1, Normal S2, No Murmurs, No Rubs, No Gallops Vascular: No Carotid Bruits, Normal Femoral Pulses, Normal Radial Pulses, Normal Dorsalis Pedal Pulse, Normal Posterior Tibial Pulses Abdomen: Bowel Sounds Present, Soft, Non Tender, No HSM, No Organomegaly Extremities: No Cyanosis, No Clubbing, No edema Musculoskeletal: No Erythema Skin: No Rashes Lymphatic: No Lymph Node Enlargement Neurological: No Focal Motor or Sensory Deficit Psych/Mental Status: Appropriate 04/14/19 21:03: Troponin I < 0.015 04/14/19 23:50: Troponin I < 0.015 04/15/19 02:40: WBC 6.7, RBC 4.29 L, Hgb 12.9 L, Hct 37.6 L, MCV 87.6, MCH 30.1, MCHC 34.3, Plt Count 199, MPV 8.5, Immature Gran % (Auto) 0.100, Neut % (Auto) 65.5, Lymph % (Auto) 20.8, [place] % (Auto) 13.5 H, Eos % (Auto) 0.1, Baso % (Auto) 0.0, Absolute Neuts (auto) 4.4, Nucleated RBC % 0 04/15/19 02:40: Sodium 138, Potassium 3.3 L, Chloride 103, Carbon Dioxide 25.0, Anion Gap 10, BUN 6 L, Creatinine 0.42 L, Est GFR (MDRD) Af Amer 295, Est GFR (MDRD) Non-Af 244, BUN/Creatinine Ratio 14.4, Glucose 93, Calcium 8.2 L, Total Bilirubin 0.80 04/15/19 02:40: Troponin I < 0.015 Rhythm: EKG: ECHO: Stress Test: Cardiac Cath: PCI: CT Surgery: Holter monitor: EPS: PPM: CXR: Chest CT Scan: Assessment/Plan 1. Atypical chest pain with nonspecific EKG changes * He presents postoperatively with atypical chest discomfort and nonspecific EKG changes. He did have some T wave inversion noted in lead V2 at 20:22 hrs. Repeat on April 15 at 5:20 AM does not demonstrate persistence of these ch anges and there is a poor baseline. I suspect the above is secondary to his GI issues as well as hypokalemia. * Would recommend replacement of his potassium * At this point in time I would not recommend any further EKGs and no further work-up of the above. His cardiac troponin enzymes are normal which is reassuring and he has had no previous cardiac history. I have discussed the above with the patient's family. * * Thank you for allowing me to participate in the care of your patient. Please don't hesitate to call if any issues arise
[2019-04-15 08:48] VITALS: BP 103/66; PULSE 111; RESP 16; TEMP 36.9; O2SAT 91
[2019-04-15] MEDS: LORazepam 1 MG Tablet PO (09:02)
[2019-04-15] MEDS: QUEtiapine 25 MG Tablet 50 MG PO (09:02)
[2019-04-15] MEDS: Pantoprazole Sodium 40 MG Tablet PO (09:02)
[2019-04-15] MEDS: carBAMazepine 200 MG Tablet PO (09:03)
[2019-04-15] MEDS: Docusate Sodium 100 MG Capsule PO (09:03)
--- NOTE | 2019-04-15 10:20 | CASEMGMT ---
RN DAVID Face to Face with patient for initial transition planning/care coordination assessment. RN CM introduced self and role at [facility]. Patient lying in bed, alert, parents at bedside. Mother willing to participate in assessment and is able to answer all questions appropriately. Care providers, pharmacy, and demographics verified. Parents wish to discharge home, denies need for home health at this time. Mother states she has no further needs or concerns at this time. CM to follow for discharge planning needs that may arise. PCP: Den Specialists: none Preferred Pharmacy: [facility] Insurance: [employer] Prescription Benefit: yes Living Will/HPOA: yes, mother Cheryl Blood LNOK: parents Living Arrangements: Patient lives with parents who care for him. Transportation: parents DME/HHC: Patient has mihaela system and wheelchair at home. Parents deny HHC at this time. Disposition Plan: Patient to discharge home with family support and follow-up plans in place. Jennifer HOLT, RN, CM
[2019-04-15 10:35] VITALS: BP 129/66; PULSE 110; RESP 18; TEMP 37; O2SAT 94
--- NOTE | 2019-04-15 10:40 | PCM.PN.HOSP ---
Patient Problems: Active and Suspected Problems Cholecystitis, acute with cholelithiasis (Acute) Cerebral palsy (Acute) Seizure disorder (Acute) Urinary retention (Acute) Degenerative disc disease (Acute) Reason for Visit: Follow-up acute cholecystitis status post cholecystectomy Subjective: Patient is a 38-year-old gentleman with history of cerebral palsy admitted with abdominal pain diagnosed with acute cholecystitis underwent Laparoscopic cholecystectomy with cholangiograms on 04/14/2019 Dr. Juan Alanis Objective: GENERAL: Appears to be comfortable HEENT: Atraumatic; EYES; Anicteric, NECK; supple, normal thyroid, RESPIRATORY: Diminished to auscultation CARDIOVASCULAR: Regular S1 S2, GI: soft, normoactive bowel sounds, : No Renal angle tenderness; EXTREMITIES: No edema, no clubbing, MUSCULOSKELETAL: no muscle waisting NEURO: Awake; SKIN: No Rash PSYCH; Flat affect Vitals/I&O's: Vital Signs Temp Pulse Resp BP Pulse Ox 98.6 F 110 H 18 129/66 H 94 04/15/19 10:35 04/15/19 10:35 04/15/19 10:35 04/15/19 10:35 04/15/19 10:35 Oxygen Flow Rate (L/min) 2 Oxygen Delivery Method Room Air Weight: 95.9 kg Body Mass Index (BMI) 31.2 Intake and Output for Last 24 Hours 04/13/19 04/14/19 04/15/19 23:59 23:59 23:59 Intake Total 2895.66 / 3095.66 1378.33 / 1378.33 Output Total 2055 / 2330 445 / 445 Balance 840.66 / 765.66 933.33 / 933.33 Laboratory Results 04/14/19 21:03: Troponin I < 0.015 04/14/19 23:50: Troponin I < 0.015 04/15/19 02:40: WBC 6.7, RBC 4.29 L, Hgb 12.9 L, Hct 37.6 L, MCV 87.6, MCH 30.1, MCHC 34.3, RDW Std Deviation 37.2, RDW Coeff of Robert 11.6, Plt Count 199, MPV 8.5, Immature Gran % (Auto) 0.100, Neut % (Auto) 65.5, Lymph % (Auto) 20.8, [place] % (Auto) 13.5 H, Eos % (Auto) 0.1, Baso % (Auto) 0.0, Absolute Neuts (auto) 4.4, Absolute Lymphs (auto) 1.40, Nucleated RBC % 0 04/15/19 02:40: Sodium 138, Potassium 3.3 L, Chloride 103, Carbon Dioxide 25.0, Anion Gap 10, BUN 6 L, Creatinine 0.42 L, Estim Creat Clear Calc 240.81, Est GFR (MDRD) Af Amer 295, Est GFR (MDRD) Non-Af 244, BUN/Creatinine Ratio 14.4, Glucose 93, Calcium 8.2 L, Total Bilirubin 0.80, AST 64 H, ALT 139 H, Alkaline Phosphatase 104, Total Protein 6.1 L, Albumin 2.8 L, Globulin 3.3, Albumin/Globulin Ratio 0.8 L 04/15/19 02:40: Troponin I < 0.015 Current Medications Acetaminophen (Tylenol) 650 mg PO Q6H PRN PRN PRN Reason: Pain Score 1-01/10 Last Admin: 04/15/19 02:32 Dose: 650 mg Documented by: Hydrocodone Bitart/Acetaminophen ([place] 5mg-325mg) 1 - 2 tablet PO Q4H PRN PRN PRN Reason: Pain Score 1-10/10 [facility]) [facility] Last Admin: 04/15/19 09:03 Dose: 200 mg Documented by: Docusate Sodium (Colace) 100 mg PO BID [facility] Last Admin: 04/15/19 09:03 Dose: 100 mg Documented by: Lactated Ringer's () 1,000 mls @ 30 mls/hr IV .[id number] [facility] Last Admin: 04/15/19 02:32 Dose: 100 mls/hr Documented by: Lorazepam (Ativan) 1 mg PO BID [facility] Last Admin: 04/15/19 09:02 Dose: 1 mg Documented by: Morphine Sulfate () 2 - 4 mg IV Q2H PRN PRN PRN Reason: Pain Score 1-10/10 Last Admin: 04/14/19 21:13 Dose: 2 mg Documented by: Morphine Sulfate () 2 - 4 mg IV Q2H PRN PRN PRN Reason: Pain Score 1-10/10 Nitroglycerin (Nitrostat) 0.4 mg SUBLINGUAL Q5M PRN PRN Reason: CARDIAC/CHEST PAIN Ondansetron HCl (Zofran) 4 mg IV Q8H PRN PRN PRN Reason: nausea Last Admin: 04/14/19 21:13 Dose: 4 mg Documented by: Pantoprazole Sodium (Protonix) 40 mg PO DAILY [facility] Last Admin: 04/15/19 09:02 Dose: 40 mg Documented by: Quetiapine Fumarate (Seroquel) 50 mg PO BID [facility] Last Admin: 04/15/19 09:02 Dose: 50 mg Documented by: Sodium Chloride () 10 - 40 ml IV UD PRN PRN Reason: SALINE FLUSH Last Admin: 04/14/19 21:13 Dose: 20 ml Documented by: Tamsulosin HCl (Flomax) 0.4 mg PO DAILY@1730 [facility] Last Admin: 04/14/19 16:43 Dose: 0.4 mg Documented by: Throat Lozenges (Cepacol Sore Throat Lozenge) 1 lozenge MUCOUS MEM Q1H PRN PRN PRN Reason: SORE THROAT Last Admin: 04/14/19 19:48 Dose: 1 lozenge Documented by: STROKE Vital Signs/Narrative: Vital Signs Temp Pulse Resp BP Pulse Ox 04/15/19 10:35 98.6 F 110 H 18 129/66 H 94 04/15/19 08:48 98.5 F 111 H 16 103/66 91 Medical Necessity - Tobacco Use Smoking Status: Never smoker Tobacco Use: Cigarettes Assessment/Plan All Active Problems Cholecystitis, acute with cholelithiasis (Acute) Cerebral palsy (Acute) Seizure disorder (Acute) Urinary retention (Acute) Degenerative disc disease (Acute) Patient is a 38-year-old gentleman with history of cerebral palsy admitted with abdominal pain diagnosed with acute cholecystitis underwent Laparoscopic cholecystectomy with cholangiograms on 04/14/2019 Dr. Juan Alanis 1. Acute cholecystitis - Laparoscopic cholecystectomy with cholangiograms on 04/14/2019 Dr. Juan Alanis 2. Urinary retention ?Managed with Flomax. Patient has a Cota catheter plan is for voiding trial this a.m. 3. Seizure disorder ?Patient is on Tegretol 4. Cerebral palsy ?Symptomatic treatment including Ativan as well as Seroquel 5. Atypical chest pain With EKG changes patient was seen in consultation by Dr. Montiel with cardiology no further work-up recommended 6. DVT prophylaxis ?SCDs Code Visit Inpatient E&M: 05515 Subs Hosp L2
[2019-04-15 13:15] VITALS: BP 100/51; PULSE 105; RESP 18; TEMP 37.1; O2SAT 94
--- NOTE | 2019-04-15 14:13 | NURSING ---
Dr. Alanis called in requesting update on patient. Notified that patient preparing to be d/c'ed and that he was able to urinate 700cc and bladder scanned for 200cc. Requested that patient follow up with primary care physician regarding retention- to ensure that it does not continue. Patient and mother notified of same and verbalized understanding.
== END 2019-04-15 15:00 | disposition home or self-care (01) | DRG 263 ==
LOC: ED 05:48 → SDC 05:54 → MS3 05:54 → SDC 11:43 → MS3 11:45
PROVIDERS: Internal Medicine; Admitting Provider Surgery; Emergency Provider Emergency Medicine; Family Provider Family Medicine; PCP Family Medicine; Visit Provider Internal Medicine
PROC: 0FT44ZZ Resection of Gallbladder, Percutaneous Endoscopic Approach (ICD-10-PCS; principal; 2019-04-14 07:30)
DX: K80.00 Calculus of gallbladder with acute cholecystitis without obstruction (principal); E87.1 Hypo-osmolality and hyponatremia; E87.6 Hypokalemia; R07.89 Other chest pain; R33.9 Retention of urine, unspecified; G80.0 Spastic quadriplegic cerebral palsy; G40.909 Epilepsy, unspecified, not intractable, without status epilepticus; F41.9 Anxiety disorder, unspecified; Z79.899 Other long term (current) drug therapy
CPT/HCPCS: 36415; 71045; 74177; 74300; 76000; 80048; 80053; 80076; 80156; 81001; 83605; 83690; 84484; 85025; 87040; 88304; 93005; 99251; 99285; J7030; J7040; J7120; Q9967; 90686; A4216; G0463; J2405

== ENCOUNTER 2019-04-26 17:11 | Emergency (ER) | payer MEDICAID, SELFPAY ==
[2019-04-14 10:28] VITALS: BMI 31.2
[2019-04-26 17:12] VITALS: BP 159/97; PULSE 115; RESP 16; TEMP 36.6; O2SAT 98; BMI 35.1
--- NOTE | 2019-04-26 18:46 | ED.DCSUM_ITS ---
History of Present Illness Chief Complaint: Complaint Informant: Patient, Family - Abdominal Pain/Flank Pain Onset: Today Context: Gradual Onset Timing: Continuous Location: - - Suprapubic - Nausea/Vomiting/Emesis GI Symptom: - - Decreased appetite Onset: Today Narrative: Patient is a 38-year-old male with history of urinary retention, cerebral palsy and seizure disorder presenting with concern for urinary retention. Parents state that patient has a history of urinary retention earlier this month when he was in the hospital for acute cholecystitis and subsequent cholecystectomy. Patient was complaining of pain in his lower abdomen today. He is also decreased appetite. At 5:20 PM father states he had 550 cc of urine out. No associated fever, nausea or vomiting. Normal bowel movements. Patient is unreliable historian secondary to his cerebral palsy and minimal communication. There does not seem to be any other complaints at this time. There is been no report of any dysuria or hematuria. Past Medical History - Allergies and Home Meds Allergies/Adverse Reactions: Allergies No Known Allergies Allergy (Verified 04/26/19 17:12) Primary Care Physician: Juan Crenshaw MD [Primary Care Provider] - Past Medical History: - - Cerebral palsy, urinary retention, seizure disorder Surgical History: cholecystectomy, - - History of left hip dislocation requiring surgery approximately age 11 Smoking Status: Never smoker Review of Systems General: Reports: - - Decreased appetite. Denies: Chills, Fever, Sweats Eyes: Denies: Visual changes - bilaterally, Diplopia ENT: Denies: Rhinorrhea, Sore throat Cardiovascular: Denies: Chest pain, Palpitations Respiratory: Denies: Dyspnea, Cough, Dyspnea on exertion Gastrointestinal: Reports: Abdominal pain. Denies: Vomiting, Diarrhea, Melena, Hematochezia Genitourinary: Reports: - - Decreased urination. Denies: Dysuria, Hematuria, Frequency Musculoskeletal: Denies: Back pain, Extremity Pain Skin: Denies: Rash, Wounds Neurological: Denies: Headache, Numbness Physical Exam Vital Signs/Narrative: Vital Signs Temp Pulse Resp BP Pulse Ox 04/26/19 17:12 97.9 F 115 H 16 159/97 H 98 Inital Vital Signs reviewed: Yes General: Well nourished, Contractures, No Acute Distress Head: Normocephalic, Atraumatic Eyes: Perrl. Negative for: Pale conjunctiva, Scleral icterus ENT: Moist mucous membranes, No rhinorrhea Neck: Supple, Nontender, No lymphadenopathy, No JVD Cardiovascular: Regular rate, Regular rhythm, No murmurs Respiratory: No distress, CTA bilaterally, Chest nontender Abdomen: Soft, Nondistended, Normal bowel sounds, No masses, Tender - Mild tenderness in the right upper quadrant as well as suprapubic region. Negative for: Guarding, Rebound tenderness Extremities: Nontender, No edema Skin: Normal color, No rash Neurological: Alert, - - Patient wheelchair-bound, contractures of the extremities, patient at neurologic baseline per parents Psychological: Normal affect, Normal Mood Diagnostic/Tx/Re-eval Clinical Impression(s) from Imaging Studies Abdomen/Pelvis CT 04/26/19 21:09 IMPRESSION: 4.3 x 2.7 cm hyperdense collection within the gallbladder fossa contains a small amount of gas. In this patient who is 12 days postop cholecystectomy this could represent a hematoma, seroma, biloma, or an abscess. 4.7 x 4.2 cm right pericardial hypodense soft tissue mass may represent a pericardial cyst. Deformity of the femoral heads and acetabulum suggesting the patient is nonweightbearing. Scoliosis with degenerative disc disease and ankylosing to the lower thoracic spine. Individualized dose optimization techniques were used for this CT. at 3798 Reported and signed by: Gianfranco Majano MD Electronically Signed: Gianfranco Majano MD at 22:10 EST Tel , Service support , ADDENDUM: 04/26/19 2224 IMPRESSION: 4.3 x 2.7 cm hyperdense collection within the gallbladder fossa contains a small amount of gas. In this patient who is 12 days postop cholecystectomy this could represent a hematoma, seroma, biloma, or an abscess. 4.7 x 4.2 cm right pericardial hypodense soft tissue mass may represent a pericardial cyst. Deformity of the femoral heads and acetabulum suggesting the patient is nonweightbearing. Scoliosis with degenerative disc disease and ankylosing to the lower thoracic spine. Individualized dose optimization techniques were used for this CT. at 2211 Reported and signed by: Gianfranco Majano MD N.B. : Marilynn Bryant MD, confirmed on 04/26/2019 22:17:38 (ET) that the referring physician received the radiology report. Electronically Signed: Gianfranco Majano MD at 22:10 EST Tel , Service support , Laboratory Data 04/26/19 04/26/19 04/26/19 19:00 19:00 20:20 WBC 4.8 RBC 5.21 Hgb 15.7 Hct 46.6 MCV 89.4 MCH 30.1 MCHC 33.7 RDW Std Deviation 37.5 RDW Coeff of Robert 11.6 Plt Count 352 MPV 8.7 Immature Gran % (Auto) 0.200 Neut % (Auto) 57.6 Lymph % (Auto) 31.1 Marion % (Auto) 8.6 Eos % (Auto) 1.9 Baso % (Auto) 0.6 Absolute Neuts (auto) 2.7 Absolute Lymphs (auto) 1.48 Nucleated RBC % 0 Sodium 138 Potassium 4.6 Chloride 105 Carbon Dioxide 27.0 Anion Gap 6 BUN 7 Creatinine 0.53 L Estim Creat Clear Calc 166.00 Est GFR (MDRD) Af Amer 223 Est GFR (MDRD) Non-Af 185 BUN/Creatinine Ratio 13.2 Glucose 80 Calcium 9.3 Total Bilirubin 0.40 AST 55 H ALT 122 H Alkaline Phosphatase 150 H Total Protein 8.3 H Albumin 3.8 Globulin 4.5 H Albumin/Globulin Ratio 0.8 L Lipase 96 Urine Color Yellow Urine Clarity Sl. Cloudy Urine pH 7.0 Ur Specific [place] 1.010 Urine Protein Negative Urine Glucose (UA) Normal Urine Ketones 50 H Urine Occult Blood Negative Urine Nitrite Negative Urine Bilirubin Negative Urine Urobilinogen Normal Ur Leukocyte Esterase Negative Urine RBC 0 SEEN Urine WBC 0 SEEN Ur Squamous Epith Cells 0-5 SEEN Urine Bacteria 0 SEEN Urine Mucus 0 SEEN - Medical Decision Making Patient is evaluated initially for concern for urinary retention. Patient was admitted for acute cholecystitis 12 days ago and his postoperative course was complicated by acute cholecystitis. Patient has over 200 cc of urine in his bladder on bladder scan. Cota catheter was placed and patient had a total of 500 cc of urine out. No suspect significant urinary retention. CBC is normal. CMP obtained as patient has abdominal pain is a poor historian secondary to cerebral palsy. This does show a transaminitis. Is essentially the same as his preoperative transaminitis. Discussed this with surgery on-call, Dr. Vicente who does recommend CT of the abdomen pelvis as patient is a poor historian and physical exam is not significantly reliable.CT of the abdomen pelvis shows an area in the gallbladder fossa that could be seroma versus hematoma, biloma or abscess. These results were reviewed with surgery on-call. As patient is overall well-appearing, afebrile with no leukocytosis Dr. Vicente has a low suspicion for abscess. Patient be discharged home with outpatient follow-up for repeat abdominal exam with surgery. Family is agreeable this plan. They are counseled on signs symptoms require return the emergency room. Cota catheter is removed in the emergency room. Family is counseled on signs of acute urinary retention. Patient's tachycardia resolved in the emergency room without intervention. Patient is counseled on signs and symptoms requiring return to the emergency room. Patient verbalizes agreement and understand this plan. Patient discharged home in stable and improved condition. ED Disposition - Plan for ED Patient: Disposition: Home or Assisted Living Diagnosis: Abdominal pain, Transaminitis Instructions: ABDOMINAL PAIN, Unkown Cause, (Male) Referrals: Juan Crenshaw MD [Primary Care Provider] - Juan Alanis MD [STAFF PHYSICIAN] - Additional Instructions: The exact cause of Hector's discomfort today is not clear. I do not think he has acute urinary retention. As long as he continues to urinate 400 to 500 cc of urine every 4 hours or so he should be fine. His liver enzymes were mildly elevated today. This is likely because of his recent surgery. His CT did show some fluid where his gallbladder was. At this time we do not think it is an infection. Should Hector develop any fever, vomiting or worsening pain please return to the emergency room. Otherwise he can follow-up with Dr. Naranjo in the office next week.
[2019-04-26 19:12] LABS: Absolute Lymphocyte Count 1.48 X10^3/uL (0.83-4.51); Absolute Neutrophil Count 2.7 X10^3/uL (2.0-7.7); Basophil# 0.03 X10^3/uL; Basophil% 0.6 % (0-1); Eosinophil# 0.09 X10^3/uL; Eosinophils% 1.9 % (0-5); Hematocrit 46.6 % (40-54); Hemoglobin 15.7 g/dL (13.0-16.5); Lymphocyte # 1.48 X10^3/ul (4.0); Lymphocyte % 31.1 % (19-41); Mean Corp Hgb Conc 33.7 g/dL (32-36); Mean Corpuscular Hgb 30.1 pg (27.0-32.0); Mean Corpuscular Volume 89.4 fL (80-94); Mean Platelet Vol. 8.7 fl (6.2-12.0); Monocyte# 0.41 X10^3/uL; Monocyte% 8.6 % (0-10); NRBC Flagged by Analyzer 0 % (0-5); Neutrophil # 2.74 X10^3/uL (2.7-7.7); Neutrophil % 57.6 % (47-70); Platelet Count 352 K/mm3 (150-450); RBC Distribution Width CV 11.6 % (11.6-14.6); RBC Distribution Width SD 37.5 fl (35.1-43.9); Red Blood Count 5.21 M/mm3 (4.6-6.2); White Blood Count 4.8 K/mm3 (4.4-11.0)
[2019-04-26 19:42] LABS: ALB/GLOB Ratio 0.8 RATIO (0.9-2.4); AST(SGOT) 55 U/L (15-37); Alanine Aminotransfer ALT/SGPT 122 U/L (16-61); Albumin, Serum 3.8 g/dL (3.2-5.0); Alkaline Phosphatase 150 U/L (45-117); Anion Gap 6 (5-15); BUN 7 mg/dL (7-18); BUN/Creat Ratio 13.2 RATIO (10-20); Calcium,Total 9.3 mg/dL (8.5-10.1); Chloride 105 mmol/L (98-107); Creatinine, Serum 0.53 mg/dL (0.70-1.30); EST Glomerular Filtration Rate 185 mL/min (>60); Est Glom Filt Rate - Afr Amer 223 mL/min (>60); Globulin 4.5 g/dL (2.2-4.2); Glucose 80 mg/dL (74-106); Lipase 96 U/L (73-393); Potassium 4.6 mmol/L (3.5-5.1); Protein, Total 8.3 g/dL (6.4-8.2); Sodium Level 138 mmol/L (136-145)
[2019-04-26 20:31] LABS: Bacteria 0 SEEN /hpf (None Seen); Mucous, Urine 0 SEEN /hpf (<or=2+); Red Blood Cells-Urine 0 SEEN /hpf (0-5); White Blood Cells 0 SEEN /hpf (0-5)
[2019-04-26 20:35] LABS: Color, Urine Yellow (Yellow); Glucose, Dipstick Normal (Normal); Ketone-Dipstick 50 mg/dl (Negative); Leukocyte Esterase-Dipstick Negative /ul (Negative); Nitrite-Dipstick Negative (Negative); Occult Blood-Urine Negative /ul (Negative); Protein-Dipstick Negative (Negative); Urine Bilirubin Dipstick Negative (Negative); Urine Clarity Sl. Cloudy (Clear); Urine Urobilinogen Normal (Normal)
[2019-04-26 20:54] LABS: Squamous Epithelial Cells - UA 0-5 SEEN /hpf (0-5)
--- NOTE | 2019-04-26 21:09 | CT_ITS ---
ACR Level 3 findings have been noted. An addendum which confirms receipt of the report will follow. HISTORY: Voiding less since yesterday. TECHNIQUE: Helically acquired images were obtained of the abdomen and pelvis without oral or IV contrast. A radiation dose optimization technique was used for this scan. COMPARISON: Intraoperative cystic duct cholangiogram from April 14, 2019. CT scan of the abdomen and pelvis also from April 14, 2019 FINDINGS: # of images incl. paperwork: 444 LUNG BASES: Pulmonary hyperexpansion persists. Focal airspace disease within the left lower lobe may be more cranial than was imaged on the previous CT scan. This is likely pneumonia. Prominent soft tissue adjacent to the right side of the heart appears to conform to the adjacent heart and chest wall, and measures 4.7 x 4.2 cm. It has a central density of on this contrasted exam of -[address] abdomen: There is a gentle dextroscoliosis to the thoracolumbar spine. Multilevel degenerative disc disease. Kyphosis due to some wedging at the thoracolumbar junction. 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 Facet arthropathy. Some ankylosing perhaps within the facet joints of the lower thoracic and upper lumbar spine. Bony remodeling to the left femoral head and left acetabulum with gracile bones and some remodeling to the right femoral head and acetabulum as well. The patient is likely nonweightbearing. The gallbladder soft tissue remains with some gas within the gallbladder fossa. On the previous study there is a distended gallbladder with multiple gallstones. I believe the patient likely has had a cholecystectomy, and what remains within the gallbladder fossa is a hematoma, seroma, biloma, or abscess. I measure the fluid collection and 4.3 x 2.7 cm. It has a density of 20 Hounsfield units. Liver, spleen, pancreas, and adrenal glands are normal. The kidneys are normal. The aorta is normal. There is no intra-or extrahepatic biliary ductal dilatation. CT pelvis: No ascites is present. The prostate gland is slightly enlarged indenting into the posterior aspect of the urinary bladder. The patient has a Cota catheter decompressing the urinary bladder. Multiple pelvic phleboliths are present.. The appendix is normal. Series 2 image 81. No air-fluid levels. No small bowel distention Bowel gas pattern is normal. CT/Abdomen/Pelvis W IV Cont ONLY IMPRESSION: 4.3 x 2.7 cm hyperdense collection within the gallbladder fossa contains a small amount of gas. In this patient who is 12 days postop cholecystectomy this could represent a hematoma, seroma, biloma, or an abscess. 4.7 x 4.2 cm right pericardial hypodense soft tissue mass may represent a pericardial cyst. Deformity of the femoral heads and acetabulum suggesting the patient is nonweightbearing. Scoliosis with degenerative disc disease and ankylosing to the lower thoracic spine. Individualized dose optimization techniques were used for this CT. at 2211 Reported and signed by: Gianfranco Majano MD Electronically Signed: Gianfranco Majano MD at 22:10 EST Tel , Service support ,
[2019-04-26 22:56] VITALS: PULSE 90; RESP 16; O2SAT 96
[2019-04-26 23:49] VITALS: PULSE 105; RESP 20; O2SAT 97
== END 2019-04-26 23:50 | disposition home or self-care (01) ==
PROVIDERS: Emergency Provider Emergency Medicine; PCP Family Medicine
DX: R10.9 Unspecified abdominal pain (principal); R74.0 Nonspecific elevation of levels of transaminase and lactic acid dehydrogenase [LDH]; G40.909 Epilepsy, unspecified, not intractable, without status epilepticus; G80.9 Cerebral palsy, unspecified; R33.9 Retention of urine, unspecified; Z99.3 Dependence on wheelchair; Z90.49 Acquired absence of other specified parts of digestive tract; Z79.899 Other long term (current) drug therapy
CPT/HCPCS: 51702; 74177; 80053; 81001; 83690; 85025; 99285; Q9967; A4216

== ENCOUNTER 2020-05-04 12:49 | Outpatient (RCR) | payer MEDICAID, SELFPAY ==
--- NOTE | 2020-05-04 14:02 | HP.PTEVAL_ITS ---
Patient's Visit Information CAMI COOPER is a 39 year old M referred to Physical Therapy by Dr. Juan Crenshaw MD with a diagnosis of Cerebral Palsy; Pressure Ulcer Buttock. Date of Evaluation: 05/04/20 Physical Therapist: Andrea Alex, PT, Cert MDT, OCS - Visit Plan Frequency: 1 Visit Plan: This patient would benefit form PMD due to inability to weight bear or ambulate, dependent on ceiling mihaela lift for transfers, limited UE strength and ROM which will maximize patient level of functional independance with self hygine ,cooking ,bathroom in home setting. - Subjective This patient seen for PT Evaluation for cerebral palsey for PMD.Patient's parents present for the duration of the evaluation to assits with questions. Looking to get new power wheelchair due to . Patient is in the wheelchair all day long. Ceiling mihaela lift for transfers. Patient is NWB. Mother is able to help with daily activities. Caregiver comes 4 days/week for 4 hours in the morning to help with daily activities. Patient has his own apartment attached to the parents home. Multiple ramps to get into and out of the house. He has a dressing table and a regular bathtub. Lift used to get patient into bathtub. Denies any pressure ulcers due to the current cushion on chair. Previous to these cushions he has a history of ulcers on buttocks. Patient able to eat and use urinal by himself. Wheel chair will be helpful with cooking, ADLs, and bathroom needs. Denies any current pain. Patient recieves physical therapy 4 days a week with mechanical sound technician. Mostly UE during physical therapy. Patient has full use of L UE but limited use of R UE due to flexion contracture. Hx of L hip surgery and seizures. SOCAIL: Lives with parents and has Aide - Objective Posture: Asymmetry with leg length (L shorter due to hip surgery). ROM: R hip flexion 60, knee flexion 70, No ABD, limited rotation. L hip flexion 60, knee flexion 55, No ABD, limited rotaion. R UE flexion contracture. L UE flexion 135 degrees, abd 125 degrees. Able to use manual controls on wheelchair independently. Transfers: Dependent, dependent on ceiling mihaela lift,. SITTING BALANCE: poor with UE support. Sensation: Intact bilaterally to light touch in UE and LE. GAIT: non ambuatory. NEURO: Right flexors synergy with increase tone ,hypotonxiity with knee/hip flexor contraction. MMT: 0/5 BLE,RUE 0/5,Left UE grssly 3/5 - Goals Goal 1:: Patient will benefit from PMD to maximize patient's functional indepence for in home and community use. Goal Time Frame: 1 Visit - Rehabilitation Potential Physical Therapy Diagnosis: Patient is a 39 year old male presenting to the clinic for PT eval for wheelchair. Patient has cerebral palsy and would benefit from a new power wheelchair in home to assist with ADLs due to inability to be weightbearing, dependent with transfers (use of mihaela lift), R UE flexion contrature, limitied ROM in B LE which will maximize patient level of functional independant in home with cooking and bathroom and ADLS'. Rehabilitation Potential: Fair - Anticipated Interventions Patient/Client Instruction: Educate patient on: Condition, Plan of Care Comments: Wheelchair For the Purpose of:: Other Other: Wheelchair (PMD) Thank you for the opportunity to evaluate your patient. For Medicare and Medicare HMO plans, please review the plan of care and approve it. It will need to be FAXED BACK to us at [phone] for Medicare purposes. For Medicare only, by signing this I certify the plan of care. Please let me know if there are questions or concerns regarding this plan of care. Physician Signature: Date:
== END 2020-05-04 19:00 | disposition home or self-care (01) ==
LOC: PT 12:49
PROVIDERS: PCP Family Medicine; Referring Provider Family Medicine; Visit Provider Family Medicine
DX: G80.9 Cerebral palsy, unspecified (principal); L89.309 Pressure ulcer of unspecified buttock, unspecified stage
CPT/HCPCS: 97162

== ENCOUNTER 2024-08-07 15:35 | Inpatient (IN) | payer MEDICAID, SELFPAY ==
[2024-08-07] VITALS (8 sets, daily range): BP systolic 98–120; BP diastolic 62–87; PULSE 76–109; RESP 16–31; TEMP 36.4–37.2; O2SAT 91–93; BMI 39.3; BMI 38.0
--- NOTE | 2024-08-07 16:24 | EKG12_ITS ---
Test Reason : N/V Blood Pressure : */* mmHG Vent. Rate : 107 BPM Atrial Rate : 107 BPM P-R Int : 146 ms QRS Dur : 90 ms QT Int : 342 ms P-R-T Axes : 32 -14 44 degrees QTcB Int : 456 ms Sinus tachycardia Otherwise normal ECG Confirmed by Cortez Matthew ([id number]), photograph editor MARY ANN HOWE ([id number]) on 08/09/2024 12:14:00 PM Referred By: Bradly Spicer Confirmed By: Cortez Matthew
--- NOTE | 2024-08-07 16:25 | EX.ED.DYSGE1 ---
HPI History of Present Illness Chief Complaint: Nausea/Vomiting Detail of Chief Complaint: Abdominal pain and vomiting Informant: patient Narrative Narrative: Patient presents to the emergency department with complaint of abdominal pain and vomiting. Symptoms started last evening. Patient has history of cerebral palsy and his mother gives a lot of the history. Apparently he was seen at [facility] this morning and had blood work as well as CT scan imaging. Mother was told that patient had inflammation in his stomach and they started him on a proton pump inhibitor and Carafate. He went home and continued to complain of abdominal pain and vomited. Mother states the vomit is brown with coffee grounds in it. He said no diarrhea. Mother states he had low-grade fever up to 99 7 at home. Denies sick contacts. Patient's had prior cholecystectomy. Patient not anticoagulated. [facility] Home Medications ?Medication ?Instructions ?Recorded ?Last Taken ?Type carbamazepine 200 mg tablet 200 mg PO BIDCM 04/14/19 08/07/24 History lorazepam 1 mg tablet 1 mg PO BID 04/14/19 08/07/24 History quetiapine 50 mg tablet 50 mg PO BID 04/14/19 08/07/24 History Allergy/AdvReac Type Severity Reaction Status Date / Time No Known Allergies Allergy Verified 08/07/24 15:35 Surgical History (Updated 08/07/24 @ 17:03 by Rosalina Person) History of cholecystectomy Social History (Updated 04/24/19 @ 14:28 by Lydia JONES PACarynC) Smoking Status: Never smoker ROS ROS ED Review of Systems ROS Unobtainable: other Constitutional Constitutional ED: Reports lethargy; Denies chills, fever(s), sweats or weight loss Eyes Eyes: Denies blurry vision, change in vision or diplopia ENT ENT ED: Denies rhinorrhea or sore throat Cardiovascular Cardiovascular: Denies chest pain, orthopnea or racing heartbeat Respiratory/Chest Respiratory/Chest: Denies cough, dyspnea, dyspnea on exertion, orthopnea or sputum Gastrointestinal Gastrointestinal: Reports abdominal pain, nausea, vomiting and other Details: Coffee-ground emesis ; Denies diarrhea Genitourinary Genitourinary ED: Denies dysuria, hematuria or urinary frequency Musculoskeletal Musculoskeletal: Denies arthralgias, back pain, myalgias or neck pain Integumentary Denies abscess, Abrasions or rash Neurologic Neurologic: Denies headache(s) or weakness Psychiatric Psychiatric: Denies anxiety, depression or suicidal thoughts Endocrine Endocrinology: Denies polydipsia, polyphagia or polyuria Hematologic/Lymphatic Hematologic/Lymphatic: Denies easy bleeding, easy bruising or lymphadenopathy Allergic/Immunologic Allergic/Immunologic ED: Denies mouth swelling, tongue swelling or urticaria EXAM Physical Exam Const Vital Signs: 08/07/24 15:36 08/07/24 17:53 08/07/24 18:00 Temperature 97.5 F L 98.3 F Temperature Source Temporal Oral Pulse Rate 109 H 76 104 H Respiratory Rate 18 16 24 H Blood Pressure 106/82 H 104/62 98/69 Blood Pressure Mean 90 76 78 Pulse Ox 92 93 91 Oxygen Delivery Method Room Air Room Air Room Air 08/07/24 19:00 08/07/24 19:59 Temperature 98.0 F 98 F Temperature Source Oral Oral Pulse Rate 105 H 104 H Respiratory Rate 22 H 31 H Blood Pressure 120/87 H 112/73 Blood Pressure Mean 98 86 Pulse Ox 92 92 Oxygen Delivery Method Room Air Positive well nourished and well developed General Appearance ED: well developed and NAD HEENT Reports TM's clear and moist mucous membranes normocephalic and atraumatic; Negative for trauma or tenderness Tympanic Membrane ED: Yes TM's clear Eyes PERRL and EOMs intact bilaterally General Eye ED: Negative for pale conjunctiva or scleral icterus Neck no lymphadenopathy, supple and no JVD General: Negative for tenderness Chest Wall inspection of chest normal and palpation of chest normal Chest Narrative: Patient wheelchair-bound Chest: Negative for tenderness Resp normal respiratory effort and clear to auscultation bilaterally Effort and Inspection: Negative for respiratory distress or pain with movement Auscultation: Negative for rhonchi, wheezes or diminished lung sounds Cardio regular rate, regular rhythm, S1 normal heart sound, S2 normal heart sound and no murmurs Peripheral Pulses: pulses 2+ throughout GI normal to inspection, nondistended, normoactive bowel sounds, soft to palpation, non-distended and no masses GI Narrative: Mild diffuse tenderness over the upper abdomen specially over the epigastric region with some mild guarding. There is no rebound, rigidity, or peritoneal signs. No masses palpated however patient with large body habitus. Back/Spine no CVA tenderness and no thoracic nor lumbar tenderness Extremity normal to inspection General Extremety ED: Negative for edema General Extremity: Negative for edema Neuro oriented x3, CN's II-XII intact bilaterally, no sensory deficits noted and gait normal Sensorium / Orientation: awake, alert, oriented to person, oriented to place and oriented to time Motor Exam: strength 5/5 throughout and strength abnormal Psych mental status grossly normal Skin no rashes or lesions noted and no wounds MDM MDM MDM Narrative Medical decision making narrative: Patient presents with abdominal pain and vomiting. Recent visit to the [facility]. Will attempt to obtain lab results as well as imaging results from the other facility. I will give him normal saline and morphine and Zofran. Will obtain an EKG as well as will repeat labs. In the differential would be gastritis versus peptic ulcer disease versus bowel obstruction or other acute process. EKG obtained arrival showed a sinus rhythm with rate of 107 bpm. CBC with differential showed a normal white count of 8.2 with hemoglobin 16 and platelet count of 328. Chemistries unremarkable. LFTs unremarkable. Lactate normal at 1.2. Troponin normal at 13. Urinalysis unremarkable. I did obtain CT results from earlier this morning done at the other facility and CT showed fluid filling the distal esophagus which is concerning for aspiration risk and recommended further eval for gastro esophageal reflux versus gastroesophageal obstruction. Also noted with stool ball in the rectum. I did do a rectal exam and there was no impaction and there was no prolapse. Also noted was a distended urinary bladder. Discussed case with engine assembler who recommended starting patient on a proton pump inhibitor and admission and EGD tomorrow morning. Discussed case with hospitalist will evaluate patient for admission Lab Data Attestation: I reviewed the patient's lab results. Labs: Laboratory Results - last 24 hr 08/07/24 08/07/24 16:52 18:01 WBC 8.2 RBC 5.29 Hgb 16.3 Hct 45.2 MCV 85.4 MCH 30.8 MCHC 36.1 H RDW Std Deviation 35.4 RDW Coeff of Robert 11.5 L Plt Count 328 MPV 8.9 Immature Gran % (Auto) 0.200 Neut % (Auto) 78.9 H Lymph % (Auto) 11.4 L Branch % (Auto) 9.5 Eos % (Auto) 0.0 Baso % (Auto) 0.0 Absolute Neuts (auto) 6.5 Absolute Lymphs (auto) 0.93 Nucleated RBC % 0 Sodium 131 L Potassium 3.3 Chloride 90 L Carbon Dioxide 26.3 Anion Gap 15 BUN 7 Creatinine 0.43 L Estim Creat Clear Calc 252.53 H Est GFR (MDRD) Non-Af 136 BUN/Creatinine Ratio 17.0 Glucose 113 H Lactic Acid 1.2 Calcium 9.0 Total Bilirubin 0.60 AST 31 ALT 39 Alkaline Phosphatase 131 H Troponin T High Sens 13 Total Protein 7.5 Albumin 4.2 Globulin 3.3 Albumin/Globulin Ratio 1.3 Lipase 15 Urine Color Yellow Urine Clarity Clear Urine pH 8.0 Ur Specific [place] 1.010 Urine Protein 30 H Urine Glucose (UA) Normal Urine Ketones 150 A* Urine Occult Blood Negative Urine Nitrite Negative Urine Bilirubin Negative Urine Urobilinogen Normal Ur Leukocyte Esterase Negative Urine RBC 0 SEEN Urine WBC 0 SEEN Ur Squamous Epith Cells 0 SEEN Urine Bacteria 0 SEEN Urine Mucus 0 SEEN Carbamazepine 6.0 EKG Initial EKG: Attestation: I personally reviewed and interpreted this EKG as follows: Comments: Sinus rhythm with ventricular rate of 107 bpm with no acute ST segment changes Discharge Plan Triage Chief Complaint: Nausea/Vomiting ED Provider: Bradly Spicer Dx/Rx/DC Orders Clinical Impression: Vomiting, Abdominal pain, Acute upper GI bleed Prescriptions: No Action carbamazepine 200 MG tablet 200 mg PO BIDCM lorazepam 1 MG tablet 1 mg PO BID quetiapine 50 MG tablet 50 mg PO BID Primary Care Provider: Sayda Galindo Referrals: Juan Crenshaw MD [Non-Staff] - Print Language: Irish Disposition Disposition: Acute Care Hospital [facility]
[2024-08-07] MEDS: 0.9% Normal Saline (1000mL) 1,000 ML 125 ML IV (16:43)
[2024-08-07] MEDS: Ondansetron 4 MG/2 ML Vial IV (16:43)
[2024-08-07] MEDS: Morphine 4 MG/ML Syringe IV (16:43)
[2024-08-07 17:04] LABS: Absolute Lymphocyte Count 0.93 X10^3/uL (0.83-4.51); Absolute Neutrophil Count 6.5 X10^3/uL (2.0-7.7); Hematocrit 45.2 % (40-54); Hemoglobin 16.3 g/dL (13.0-16.5); Lymphocyte # 0.93 X10^3/ul (0.83-4.51); Lymphocyte % 11.4 % (19-41); Mean Corp Hgb Conc 36.1 g/dL (32-36); Mean Corpuscular Hgb 30.8 pg (27.0-32.0); Mean Corpuscular Volume 85.4 fL (80-94); Mean Platelet Vol. 8.9 fl (6.2-12.0); Monocyte# 0.78 X10^3/uL; Monocyte% 9.5 % (0-10); NRBC Flagged by Analyzer 0 % (0-5); Neutrophil # 6.45 X10^3/uL (2.7-7.7); Neutrophil % 78.9 % (47-70); Platelet Count 328 K/mm3 (150-450); RBC Distribution Width CV 11.5 % (11.6-14.6); RBC Distribution Width SD 35.4 fl (35.1-43.9); Red Blood Count 5.29 M/mm3 (4.6-6.2); White Blood Count 8.2 K/mm3 (4.4-11.0)
[2024-08-07 17:31] LABS: Lactic Acid 1.2 mmol/L (0.0-2.0)
[2024-08-07 17:36] LABS: Lipase 15 U/L (13-75); Troponin T High Sensitivity 13 ng/L (<=22)
[2024-08-07 17:37] LABS: ALB/GLOB Ratio 1.3 RATIO (0.9-2.4); AST(SGOT) 31 U/L (<=37); Alanine Aminotransfer ALT/SGPT 39 U/L (<=46); Albumin, Serum 4.2 g/dL (3.5-5.0); Alkaline Phosphatase 131 U/L (40-129); Anion Gap 15 (5-15); BUN 7 mg/dL (4-19); Carbon Dioxide 26.3 mmol/L (21.0-32.0); Chloride 90 mmol/L (98-108); Creatinine, Serum 0.43 mg/dL (0.70-1.20); EST Glomerular Filtration Rate 136 (>60); Estimated Creatinine Clearance 252.53 ml/min (50-250); Globulin 3.3 g/dL (2.2-4.2); Glucose 113 mg/dL (70-99); Potassium 3.3 mmol/L (3.3-5.1); Protein, Total 7.5 g/dL (5.9-8.4); Sodium Level 131 mmol/L (133-145)
--- NOTE | 2024-08-07 17:39 | ED.RN ---
THIS TRANSCRIPTIONIST CALLED [facility] AND ASKED FIRST TO BE CONNECTED WITH MEDICAL RECORDS BUT THEY CLOSE AT 1600. SO, AFTER I WAS CONNECTED WITH THE ER AND ASKED FOR THE FAX NUMBER AND REQUESTED THE WORKUP THE PT HAD EARLIER TODAY. FAX #: [phone]
[2024-08-07] MEDS: Pantoprazole Sodium 40 MG in 0.9% Normal Saline (100mL MB+) 100 ML 330 MG IV (18:06)
[2024-08-07 18:11] LABS: Bacteria 0 SEEN /hpf (None Seen); Mucous, Urine 0 SEEN /hpf (<or=2+); Red Blood Cells-Urine 0 SEEN /hpf (0-5); Squamous Epithelial Cells - UA 0 SEEN /hpf (0-5); White Blood Cells 0 SEEN /hpf (0-5)
[2024-08-07 18:15] LABS: Color, Urine Yellow (Yellow); Glucose, Dipstick Normal (Normal); Leukocyte Esterase-Dipstick Negative /ul (Negative); Nitrite-Dipstick Negative (Negative); Occult Blood-Urine Negative /ul (Negative); Protein-Dipstick 30 mg/dl (Negative); Urine Bilirubin Dipstick Negative (Negative); Urine Clarity Clear (Clear); Urine Urobilinogen Normal (Normal)
[2024-08-07 18:28] LABS: Ketone-Dipstick 150 mg/dl (Negative)
--- NOTE | 2024-08-07 21:01 | PCM.HP.STD ---
[facility] - General General Date of Admission: 08/07/24 Date of Service: 08/07/24 Chief Complaint: Abdominal Pain, Nausea and Vomiting. HPI Narrative CAMI BLOOD, is a 43 M with a past medical history of cerebral palsy; chronically in wheelchair, obesity; with BMI of 39.3 this admission, seizure disorder; on carbamazepine plus lorazepam BID, depression; on quetiapine, history of acute cholecystitis with cholelithiasis; s/p cholecystectomy and DDD who presents to [facility] complaining of abdominal pain, nausea and vomiting. Mr. Blood is a suboptimal historian so information was gathered from chart, medical staff, computer and patient's mother. According to the records he began to have nausea and vomiting with 'coffee-grounds' last night with a continuation of his symptoms this AM so he was initially taken to the ER at [facility] where he underwent blood work and CT scan of the abdomen/pelvis that apparently revealed evidence of gastritis; with a fluid-filled stomach in addition to a 'ball of stool' in his rectum. He was subsequently started on a PPI and sucralfate and then discharged with patient continuing to have nausea and vomiting so his mother had him brought here for further evaluation and treatment. His mother reiterated to the ER physician that his emesis was brown in color with coffee-grounds in it but she denied any diarrhea. His mother also stated he had a low-grade temperature of 99.7 degrees Fahrenheit at home with patient also noted to be lethargic. There was no report of chills, visual changes, runny nose, sore throat, ear pain, chest pain, palpitations, heart racing, LE edema, dysuria, hematuria, arthralgias, myalgias, headache or rash. In the ER he was noted to have unremarkable laboratory studies and vital signs with suspected UGIB with the ER physician then speaking to the furniture and bedding inspector on-call who recommended admission to the hospitalist service with plan for EGD in AM. He was then admitted to the PCU for ongoing care for a stay that is expected to extend beyond 2 midnights. PFSH Home Medications ?Medication ?Instructions ?Recorded ?Last Taken ?Type carbamazepine 200 mg tablet 200 mg PO BIDCM 04/14/19 08/07/24 History lorazepam 1 mg tablet 1 mg PO BID 04/14/19 08/07/24 History quetiapine 50 mg tablet 50 mg PO BID 04/14/19 08/07/24 History Allergy/AdvReac Type Severity Reaction Status Date / Time No Known Allergies Allergy Verified 08/07/24 15:35 Surgical History (Updated 08/07/24 @ 17:03 by Rosalina Person) History of cholecystectomy Social History (Updated 04/24/19 @ 14:28 by Lydia JONES, PACarynC) Smoking Status: Never smoker ROS ROS Narrative Full review of systems. Possible due to patient cerebral palsy and acute illness. Vital Signs Vital Signs Vital Signs: 08/07/24 15:36 08/07/24 17:53 08/07/24 18:00 Temperature 97.5 F L 98.3 F Temperature Source Temporal Oral Pulse Rate 109 H 76 104 H Respiratory Rate 18 16 24 H Blood Pressure 106/82 H 104/62 98/69 Blood Pressure Mean 90 76 78 Pulse Ox 92 93 91 Oxygen Delivery Method Room Air Room Air Room Air 08/07/24 19:00 08/07/24 19:59 Temperature 98.0 F 98 F Temperature Source Oral Oral Pulse Rate 105 H 104 H Respiratory Rate 22 H 31 H Blood Pressure 120/87 H 112/73 Blood Pressure Mean 98 86 Pulse Ox 92 92 Oxygen Delivery Method Room Air Weight Weight: 236 lb 5.369 oz Body Mass Index (BMI) 39.3 Physical Exam Const alert and no apparent distress Constitutional Narrative: Obese. General Appearance: cooperative Orientation / Consciousness: confused HEENT normocephalic, head/scalp atraumatic and hearing grossly normal bilaterally HEENT Narrative: Mucous membranes dry. Eyes PERRL, EOMs intact bilaterally and conjunctivae normal Eyes Narrative: Patient has evidence of strabismus. Neck no lymphadenopathy, supple and no JVD Resp normal respiratory effort, no retractions, no use of accessory muscles and clear to auscultation bilaterally Cardio regular rate and regular rhythm GI soft to palpation GI Narrative: Patient mildly tender to palpation over epigastrium with diminished bowel sounds. Auscultation: hypoactive bowel sounds Extremity normal to inspection, full ROM and no clubbing, cyanosis or edema Skin Skin Narrative: Patient has evidence of rash, abscess, wounds or jaundice. Neuro CN's II-XII intact bilaterally, moves all extremities and no focal motor deficits Neuro Narrative: Patient has abnormal speech at baseline. Sensorium / Orientation: awake, alert and oriented to person Psych affect normal Results Medical Records Data Attestation: I reviewed the patient's medical records Lab / Micro Data Attestation: I reviewed the patient's lab results. 08/07/24 16:52 08/07/24 16:52 Labs: Laboratory Results - last 24 hr 08/07/24 16:52: WBC 8.2, RBC 5.29, Hgb 16.3, Hct 45.2, MCV 85.4, MCH 30.8, MCHC 36.1 H, RDW Std Deviation 35.4, RDW Coeff of Robert 11.5 L, Plt Count 328, MPV 8.9, Immature Gran % (Auto) 0.200, Neut % (Auto) 78.9 H, Lymph % (Auto) 11.4 L, [place] % (Auto) 9.5, Eos % (Auto) 0.0, Baso % (Auto) 0.0, Absolute Neuts (auto) 6.5, Absolute Lymphs (auto) 0.93, Nucleated RBC % 0, Sodium 131 L, Potassium 3.3, Chloride 90 L, Carbon Dioxide 26.3, Anion Gap 15, BUN 7, Creatinine 0.43 L, Estim Creat Clear Calc 252.53 H, Est GFR (MDRD) Non-Af 136, BUN/Creatinine Ratio 17.0, Glucose 113 H, Lactic Acid 1.2, Calcium 9.0, Total Bilirubin 0.60, AST 31, ALT 39, Alkaline Phosphatase 131 H, Troponin T High Sens 13, Total Protein 7.5, Albumin 4.2, Globulin 3.3, Albumin/Globulin Ratio 1.3, Lipase 15, Carbamazepine 6.0 08/07/24 18:01: Urine Color Yellow, Urine Clarity Clear, Urine pH 8.0, Ur Specific [place] 1.010, Urine Protein 30 H, Urine Glucose (UA) Normal, Urine Ketones 150 A*, Urine Occult Blood Negative, Urine Nitrite Negative, Urine Bilirubin Negative, Urine Urobilinogen Normal, Ur Leukocyte Esterase Negative, Urine RBC 0 SEEN, Urine WBC 0 SEEN, Ur Squamous Epith Cells 0 SEEN, Urine Bacteria 0 SEEN, Urine Mucus 0 SEEN Imaging [facility] Imaging Services [address] [place] [address] Abdomen/Pelvis W IV Cont ONLY MR#: [id number] Acct: [id number] Name: CAMI BLOOD Rep #: [id number] : 1980 M 43 From: Gómez Cox MD PCP: ROEBRT Galvez Status: ADM IN Study: Abdomen/Pelvis W IV Cont ONLY Date of Exam: 08/07/24 Exam# [id number] Ordering Dr: Eulogio Valle DO PROCEDURE: ABDOMEN/PELVIS W IV CONT ONLY 08/07/2024 REASON FOR EXAM: ABD PAIN, N/V AND SUSPECTED UGIB WITH POSSIBLE GOO TECHNIQUE: Abdomen and pelvis CT with intravenous contrast. Coronal and Sagittal reconstruction series were provided. PATIENT PREPARATION: Per protocol ORAL CONTRAST TYPE: None. AMOUNT: mL CONTRAST: Omnipaque 350 VOLUME: 100 mL Not Provided Gauge IV One or more dose reduction techniques were used (e.g., Automated exposure control, adjustment of the mA and/or kV according to patient size, use of iterative reconstruction technique. COMPARISON: CT abdomen and pelvis 04/2019 FINDINGS: Lung bases: Mild bibasilar atelectasis. Liver: Hepatic steatosis. No focal lesion. Gallbladder: Cholecystectomy. Spleen: Normal size. Pancreas: Normal size without evidence of mass surrounding inflammation or ductal dilation. Adrenals: 8 mm left adrenal lateral limb soft tissue nodule. Right adrenal gland is unremarkable. Kidneys: Normal renal sizes. No hydronephrosis. Bladder: Contrast filled urinary bladder. Reproductive Organs: No pelvic mass. Bowel: Small hiatal hernia. The stomach is unremarkable. No bowel dilation or wall thickening. Moderate colonic stool. Appendix: Normal appendix. Lymph nodes: No suspicious lymph node enlargement. Vasculature: The abdominal aorta and IVC are normal. Peritoneum / Retroperitoneum: No ascites. No pneumoperitoneum. Bones: Degenerative changes of the spine. CT/Abdomen/Pelvis W IV Cont ONLY IMPRESSION: No acute findings in the abdomen and pelvis. OVERALL FINAL ASSESSMENT: . LI-RADS is not meant to be used in patients <18 years or patients with cirrhosis due to congenital hepatic fibrosis or due to vascular disorders, because these patients have a lower chance of developing HCC. Reading Location: [facility] Assessment & Plan Assessment/Plan (1) Acute upper GI bleed: (2) Abdominal pain: QUALIFIERS: Abdominal location: generalized Qualified Code(s): R10.84 - Generalized abdominal pain (3) Nausea and vomiting: QUALIFIERS: Vomiting type: unspecified Qualified Code(s): R11.2 - Nausea with vomiting, unspecified (4) Obesity (BMI 30-39.9): (5) Cerebral palsy: QUALIFIERS: Cerebral palsy type: unspecified type Qualified Code(s): G80.9 - Cerebral palsy, unspecified (6) Seizure disorder: PLAN: Plan 1. Suspected UGIB; with Abdominal Pain, Nausea and Vomiting with 'Coffee-Ground' Emesis - Admit to general medical floor under aspiration and seizure precautions. Give IV pantoprazole infusion and keep strict NPO. Give ondansetron IV prn nausea and vomiting. Give promethazine IM prn for breakthrough nausea. Give acetaminophen [place] prn for byct-sm-pelqcgnl (level 1-5/10) pain or fever. Give morphine IV prn for severe (level 6-10/10) pain. Check CT scan of the abdomen and pelvis with IV contrast to evaluate for objective evidence of bleeding and to rule out possible gastric outlet obstruction. Finally, we will consult gastroenterology to see this patient on-rounds in the AM for further recommendations with help appreciated in advance. 2. Obesity; with BMI of 39.3 this admission complicating #1 - Weight loss will be recommended. Check TSH. This complicates his case and may hamper recovery. 3. Cerebral Palsy; with patient chronically in wheelchair at baseline compounding #1 & #2 - Stable. PT and Case Management to evaluate and treat in AM and to help with discharge planning with help appreciated in advance. 4. Seizure disorder; on carbamazepine plus lorazepam BID adding to the medical complexity of #1 - #3 - Check carbamazepine level. Start levetiracetam 1g IV BID plus give prn IV lorazepam prn for breakthrough seizure activity. 5. Depression; on quetiapine - Restart this agent when patient can tolerate oral intake. 6. History of acute cholecystitis with cholelithiasis; s/p cholecystectomy - Noted. 7. DDD - Stable. 8. DVT prophylaxis - SCD's only in light of #1 contraindicating use of chemoprophylaxis. Total time: Approximately (but not less than) 75 minutes. Charges/Coding Visit Charges Inpatient E&M: 29616 Init Hosp L3
--- NOTE | 2024-08-07 21:17 | CT_ITS ---
PROCEDURE: ABDOMEN/PELVIS W IV CONT ONLY 08/07/2024 REASON FOR EXAM: ABD PAIN, N/V AND SUSPECTED UGIB WITH POSSIBLE GOO TECHNIQUE: Abdomen and pelvis CT with intravenous contrast. Coronal and Sagittal reconstruction series were provided. PATIENT PREPARATION: Per protocol ORAL CONTRAST TYPE: None. AMOUNT: mL CONTRAST: Omnipaque 350 VOLUME: 100 mL Not Provided Gauge IV One or more dose reduction techniques were used (e.g., Automated exposure control, adjustment of the mA and/or kV according to patient size, use of iterative reconstruction technique. COMPARISON: CT abdomen and pelvis 04/2019 FINDINGS: Lung bases: Mild bibasilar atelectasis. Liver: Hepatic steatosis. No focal lesion. Gallbladder: Cholecystectomy. Spleen: Normal size. Pancreas: Normal size without evidence of mass surrounding inflammation or ductal dilation. Adrenals: 8 mm left adrenal lateral limb soft tissue nodule. Right adrenal gland is unremarkable. Kidneys: Normal renal sizes. No hydronephrosis. Bladder: Contrast filled urinary bladder. Reproductive Organs: No pelvic mass. Bowel: Small hiatal hernia. The stomach is unremarkable. No bowel dilation or wall thickening. Moderate colonic stool. Appendix: Normal appendix. Lymph nodes: No suspicious lymph node enlargement. Vasculature: The abdominal aorta and IVC are normal. Peritoneum / Retroperitoneum: No ascites. No pneumoperitoneum. Bones: Degenerative changes of the spine. CT/Abdomen/Pelvis W IV Cont ONLY IMPRESSION: No acute findings in the abdomen and pelvis. OVERALL FINAL ASSESSMENT: . LI-RADS is not meant to be used in patients <18 years or patients with cirrhosi s due to congenital hepatic fibrosis or due to vascular disorders, because these patients have a lower chance of developing HC C. Reading Location: [facility]
[2024-08-07] MEDS: levETIRAcetam IV 1,000 MG/100 ML BAG 400 MG IV (22:17)
[2024-08-07 22:37] LABS: Magnesium 2.2 mg/dL (1.5-2.2); Thyroid Stim Hormone (TSH) 0.905 uIU/mL (0.300-4.200)
[2024-08-07] MEDS: 0.9% Saline Lock 10 ML Syringe IV (23:58)
[2024-08-07] MEDS: KCL 20MEQ in 0.9% NS 20 MEQ/1,000 ML IV.SOLN. 125 MEQ IV (23:58)
[2024-08-07 23:59] LABS: Vitamin B12 703 pg/mL (180-914)
[2024-08-08] VITALS (14 sets, daily range): BP systolic 92–153; BP diastolic 46–86; PULSE 69–100; RESP 16–20; TEMP 36.4–37.2; O2SAT 92–97; BMI 38.0
[2024-08-08] MEDS: Pantoprazole Sodium 80 MG in 0.9% Normal Saline (100mL Bag) 80 ML 10 MG CONT INF ×2 (00:05→09:51)
[2024-08-08 00:28] LABS: Lipase 14 U/L (13-75)
[2024-08-08] MEDS: Lorazepam 2 MG/ML WCH Syringe 0.5 MG IV (00:52)
[2024-08-08] MEDS: 0.9% Saline Lock 10 ML Syringe IV ×3 (00:53→22:35)
[2024-08-08 05:28] LABS: Absolute Lymphocyte Count 1.74 X10^3/uL (0.83-4.51); Absolute Neutrophil Count 3.1 X10^3/uL (2.0-7.7); Basophil# 0.03 X10^3/uL; Basophil% 0.5 % (0-1); Eosinophil# 0.12 X10^3/uL; Eosinophils% 2.1 % (0-5); Hematocrit 39.5 % (40-54); Hemoglobin 13.6 g/dL (13.0-16.5); Lymphocyte # 1.74 X10^3/ul (0.83-4.51); Lymphocyte % 30.1 % (19-41); Mean Corp Hgb Conc 34.4 g/dL (32-36); Mean Corpuscular Hgb 30.4 pg (27.0-32.0); Mean Corpuscular Volume 88.2 fL (80-94); Mean Platelet Vol. 8.4 fl (6.2-12.0); Monocyte% 13.8 % (0-10); NRBC Flagged by Analyzer 0 % (0-5); Neutrophil # 3.08 X10^3/uL (2.7-7.7); Neutrophil % 53.2 % (47-70); Platelet Count 249 K/mm3 (150-450); RBC Distribution Width CV 11.9 % (11.6-14.6); Red Blood Count 4.48 M/mm3 (4.6-6.2); White Blood Count 5.8 K/mm3 (4.4-11.0)
[2024-08-08 05:50] LABS: Partial Thromboplast Time 25.8 Seconds (24.1-36.2)
[2024-08-08 05:58] LABS: ALB/GLOB Ratio 1.4 RATIO (0.9-2.4); AST(SGOT) 24 U/L (<=37); Alanine Aminotransfer ALT/SGPT 34 U/L (<=46); Albumin, Serum 3.5 g/dL (3.5-5.0); Alkaline Phosphatase 99 U/L (40-129); Anion Gap 10 (5-15); BUN 8 mg/dL (4-19); BUN/Creat Ratio 20.3 RATIO (10-20); Carbon Dioxide 26.3 mmol/L (21.0-32.0); Chloride 98 mmol/L (98-108); EST Glomerular Filtration Rate 139 (>60); Estimated Creatinine Clearance 275.49 ml/min (50-250); Globulin 2.4 g/dL (2.2-4.2); Glucose 90 mg/dL (70-99); Phosphorus 2.6 mg/dL (2.7-4.5); Potassium 3.3 mmol/L (3.3-5.1); Sodium Level 134 mmol/L (133-145)
[2024-08-08] MEDS: KCL 20MEQ in 0.9% NS 20 MEQ/1,000 ML IV.SOLN. 125 MEQ IV (08:24)
--- NOTE | 2024-08-08 10:14 | PN.HOSP_ITS ---
Reason for Visit Reason for Visit: Diagnoses Obesity, unspecified (08/07/24) Epilepsy, unspecified, not intractable, without status epilepticus (08/07/24) Cerebral palsy, unspecified (08/07/24) Gastrointestinal hemorrhage, unspecified (08/07/24) Generalized abdominal pain (08/07/24) Nausea with vomiting, unspecified (08/07/24) Objective Data Objective Data Vital Signs: Vital Signs Temp Pulse Resp BP Pulse Ox O2 Del Method O2 Flow Rate 98.3 F 86 18 92/62 92 Room Air 1 08/08/24 09:45 08/08/24 09:45 08/08/24 09:45 08/08/24 09:45 08/08/24 09:45 08/08/24 09:45 08/08/24 01:10 Oxygen Flow Rate (L/min) 1 Oxygen Delivery Method Room Air Weight: 235 lb 3.732 oz Body Mass Index (BMI) 38.0 Intake & Output: Intake and Output for Last 24 Hours 08/06/24 08/07/24 08/08/24 23:59 23:59 23:59 Intake Total 1210 / 1210 1097.67 / 1097.67 Output Total 550 / 550 Balance 1210 / 1210 547.67 / 547.67 Lab / Micro Data 08/08/24 05:15 08/08/24 05:15 Labs: Laboratory Results - last 24 hr 08/07/24 16:52: WBC 8.2, RBC 5.29, Hgb 16.3, Hct 45.2, MCV 85.4, MCH 30.8, MCHC 36.1 H, RDW Std Deviation 35.4, RDW Coeff of Robert 11.5 L, Plt Count 328, MPV 8.9, Immature Gran % (Auto) 0.200, Neut % (Auto) 78.9 H, Lymph % (Auto) 11.4 L, Teller % (Auto) 9.5, Eos % (Auto) 0.0, Baso % (Auto) 0.0, Absolute Neuts (auto) 6.5, Absolute Lymphs (auto) 0.93, Nucleated RBC % 0, Sodium 131 L, Potassium 3.3, C hloride 90 L, Carbon Dioxide 26.3, Anion Gap 15, BUN 7, Creatinine 0.43 L, Estim Creat Clear Calc 252.53 H, Est GFR (MDRD) Non-Af 136, BUN/Creatinine Ratio 17.0, Glucose 113 H, Hemoglobin A1c 5.0, Lactic Acid 1.2, Calcium 9.0, Total Bilirubin 0.60, AST 31, ALT 39, Alkaline Phosphatase 131 H, Troponin T High Sens 13, Total Protein 7.5, Albumin 4.2, Globulin 3.3, Albumin/Globulin Ratio 1.3, Lipase 15 08/07/24 16:52: Lipase 14, Vitamin B12 703, Serum Folate 33.50, Carbamazepine 6.0 08/07/24 16:59: Magnesium 2.2, TSH 0.905 08/07/24 18:01: Urine Color Yellow, Urine Clarity Clear, Urine pH 8.0, Ur Specific Hopkins 1.010, Urine Protein 30 H, Urine Glucose (UA) Normal, Urine Ketones 150 A*, Urine Occult Blood Negative, Urine Nitrite Negative, Urine Bilirubin Negative, Urine Urobilinogen Normal, Ur Leukocyte Esterase Negative, Urine RBC 0 SEEN, Urine WBC 0 SEEN, Ur Squamous Epith Cells 0 SEEN, Urine Bacteria 0 SEEN, Urine Mucus 0 SEEN 08/08/24 05:15: WBC 5.8, RBC 4.48 L, Hgb 13.6, Hct 39.5 L, MCV 88.2, MCH 30.4, MCHC 34.4, RDW Std Deviation 38.0, RDW Coeff of Robert 11.9, Plt Count 249, MPV 8.4, Immature Gran % (Auto) 0.300, Neut % (Auto) 53.2, Lymph % (Auto) 30.1, Teller % (Auto) 13.8 H, Eos % (Auto) 2.1, Baso % (Auto) 0.5, Absolute Neuts (auto) 3.1, Absolute Lymphs (auto) 1.74, Nucleated RBC % 0, APTT 25.8, Sodium 134, Potassium 3.3, Chloride 98, Carbon Dioxide 26.3, Anion Gap 10, BUN 8, Creatinine 0.40 L, E stim Creat Clear Calc 275.49 H, Est GFR (MDRD) Non-Af 139, BUN/Creatinine Ratio 20.3 H, Glucose 90, Calcium 8.0, Phosphorus 2.6 L, Total Bilirubin 0.50, AST 24, ALT 34, Alkaline Phosphatase 99, Total Protein 6.0, Albumin 3.5, Globulin 2.4, Albumin/Globulin Ratio 1.4 Radiography Diagnostic Testing: Radiology Impression Abdomen/Pelvis CT 08/07/24 21:17 IMPRESSION: No acute findings in the abdomen and pelvis. OVERALL FINAL ASSESSMENT: . LI-RADS is not meant to be used in patients <18 years or patients with cirrhosis due to congenital hepatic fibrosis or due to vascular disorders, because these patients have a lower chance of developing HCC. Reading Location: [facility] Physical Exam Narrative Seen and examined. Patient is accompanied by by his mother, father and brother in the room. Patient is MRDD with history of cerebral palsy Physical exam General: Awake, orientation cannot be ascertained. Minimal language function with incomprehensible sounds/words. Obesity grade 2 BMI 38.0 kg/m? HEENT: Atraumatic, PERRLA, EOMI, Normocephalic. Oral: Wide neck. Deep oropharyngeal structures could not be visualized Neck: Supple, No JVD, Negative Carotid Bruits Chest wall/Lungs: Air entry diminished in bilateral lung bases. No crepitation/rhonchi Cardiovascular: Regular rate and rhythm, Normal S1,S2, No M/G/R Abdomen: Bowel Sounds Present, Soft, Non Tender, Non-Distended : No dysuria. No renal angle tenderness. No suprapubic tenderness. Extremities: Mild pedal edema, Capillary Refill Less than 3 Seconds Skin: No rashes, No breakdown Musculoskeletal: Lower extremity contracted at knee and hip joints. Patient bedbound. Neurological: Cranial nerves II-XII grossly intact, DTR 2+/4. No acute focal neurological deficit. Psych/Mental Status: Flat affect.. Assessment & Plan Assessment/Plan (1) Acute upper GI bleed: (2) Abdominal pain: QUALIFIERS: Abdominal location: generalized Qualified Code(s): R 10.84 - Generalized abdominal pain (3) Nausea and vomiting: QUALIFIERS: Vomiting type: unspecified Qualified Code(s): R11.2 - Nausea with vomiting, unspecified (4) Obesity (BMI 30-39.9): (5) Cerebral palsy: QUALIFIERS: Cerebral palsy type: unspecified type Qualified Code(s): G80.9 - Cerebral palsy, unspecified (6) Seizure disorder: PLAN: Plan 43-year-old gentleman admitted with nausea, vomiting and abdominal pain since last night. History of CP and mother is a caregiver. Patient had CT imaging in mid muscular and probably has inflammation in his stomach as per the mother. He was started on PPI and Carafate. His vomiting is a brownish/coffee colored. No diarrhea. No confusion. # From December 21 1. Suspected UGIB; with Abdominal Pain, Nausea and Vomiting with 'Coffee- Ground' Emesis -patient has been in PCU. On IV PPI every [address] Mcdaniel. Plan for EGD. CT abdomen done here does not show acute intra- abdominal abnormality. H&H 13.6/39%. Platelet count normal to 49K. 2. Obesity; with BMI of 39.3 this admission complicating #1 - Weight loss will be recommended. Check TSH. This complicates his case and may hamper recovery. 3. Cerebral Palsy; with patient chronically in wheelchair at baseline with risk of aspiration PT and Case Management to evaluate and treat in AM and to help with discharge planning with help appreciated in advance. 4. Seizure disorder; on carbamazepine plus lorazepam BID adding to the medical complexity of #1 - #3 - Check carbamazepine level. Start levetiracetam 1g IV BID plus give prn IV lorazepam prn for breakthrough seizure activity. 5. Depression; on quetiapine - Restart this agent when patient can tolerate oral intake. 6. History of acute cholecystitis with cholelithiasis; s/p cholecystectomy - Noted. 7. Mild hyponatremia: Sodium 131, improved to 134. Mild hypophosphatemia. 8. DVT prophylaxis - SCD's only in light of #1 contraindicating use of chemoprophylaxis. Laboratory Results 08/07/24 16:52: Sodium 131 L, Potassium 3.3, Chloride 90 L, Carbon Dioxide 26.3, Anion Gap 15, BUN 7, Creatinine 0.43 L, Estim Creat Clear Calc 252.53 H, Est GFR (MDRD) Non-Af 136, BUN/Creatinine Ratio 17.0, Glucose 113 H, Hemoglobin A1c 5.0, Lactic Acid 1.2, Calcium 9.0, Total Bilirubin 0.60, AST 31, ALT 39, Alkaline Phosphatase 131 H, Troponin T High Sens 13, Total Protein 7.5, Albumin 4.2, Globulin 3.3, Albumin/Globulin Ratio 1.3, Lipase 15 08/07/24 16:52: Lipase 14, Vitamin B12 703, Serum Folate 33.50, Carbamazepine 6.0 08/07/24 16:59: Magnesium 2.2, TSH 0.905 08/07/24 18:01: Urine Color Yellow, Urine Clarity Clear, Urine pH 8.0, Ur Specific Hopkins 1.010, Urine Protein 30 H, Urine Glucose (UA) Normal, Urine Ketones 150 A*, Urine Occult Blood Negative, Urine Nitrite Negative, Urine Bilirubin Negative, Urine Urobilinogen Normal, Ur Leukocyte Esterase Negative, Urine RBC 0 SEEN, Urine WBC 0 SEEN, Ur Squamous Epith Cells 0 SEEN, Urine Bacteria 0 SEEN, Urine Mucus 0 SEEN 08/08/24 05:15: WBC 5.8, RBC 4.48 L, Hgb 13.6, Hct 39.5 L, MCV 88.2, MCH 30.4, MCHC 34.4, RDW Std Deviation 38.0, RDW Coeff of Robert 11.9, Plt Count 249, MPV 8.4, Immature Gran % (Auto) 0.300, Neut % (Auto) 53.2, Lymph % (Auto) 30.1, Teller % (Auto) 13.8 H, Eos % (Auto) 2.1, Baso % (Auto) 0.5, Absolute Neuts (auto) 3.1, Absolute Lymphs (auto) 1.74, Nucleated RBC % 0, APTT 25.8, Sodium 134, Potassium 3.3, Chloride 98, Carbon Dioxide 26.3, Anion Gap 10, BUN 8, Creatinine 0.40 L, E stim Creat Clear Calc 275.49 H, Est GFR (MDRD) Non-Af 139, BUN/Creatinine Ratio 20.3 H, Glucose 90, Calcium 8.0, Phosphorus 2.6 L, Total Bilirubin 0.50, AST 24, ALT 34, Alkaline Phosphatase 99, Total Protein 6.0, Albumin 3.5, Globulin 2.4, Albumin/Globulin Ratio 1.4, Lamotrigine Pending 08/08/24 13:44: Blood Type A NEGATIVE, Antibody Screen NEGATIVE Charges/Coding Visit Charges Inpatient E&M: 15136 Subs Hosp L2
[2024-08-08] MEDS: levETIRAcetam IV 1,000 MG/100 ML BAG 400 MG IV (10:40)
--- NOTE | 2024-08-08 15:30 | EGD_PTH ---
PATIENT: CAMI COOPER LOC: [facility] U#:[id number] AGE/SX: 43/M ROOM: [facility] RE08/07/[address]: Dr. Darwin Senior MD : [id number] BED: 1 DIS: 08/09/2024 SPEC #: [id number] RECD: 08/09/24 07:35 STATUS: MEDINA REGerri #: [id number] ALO: 08/08/24 15:[address]: Claudy Mcdaniel DEPT: SURGICAL PATHOLOGY RECD BY: Melecio Baldwin ENTERED: 08/09/24 08:54 SP TYPE: EGD BIOPSY OT DR: DO Dr. Darwin Campos MD Dr. Remus Ungur, DO Rebecca Bean, PA Tissues: A - Esophagus, NOS Procedures: Special Stain Group I Surgery Specimen Level IV GMS Stain (control) HEADER OPERATION: EGD with biopsy PRE-OP DIAGNOSIS: Acute upper GI bleed, abdominal pain, nausea/vomiting TISSUE SUBMITTED: A- Distal esophagus biopsy MICROSCOPIC DIAGNOSIS A. Esophagus, distal, biopsy: * Squamous mucosa with reactive changes, acute inflammation, and rare eosinophils. * A PASD stain for fungal organisms is pending and will be reported in an addendum * Columnar mucosa with goblet cell metaplasia - see note. * Negative for dysplasia. * Note: The diagnosis depends on the location of the biopsy and the extent of the mucosal irregularity. If the biopsy originates from the tubular esophagus and the mucosal irregularity extends at least 1 cm above the top of the gastric folds, this represents Olvera mucosa. If the biopsy originates from the gastric cardia and/or the mucosal irregularity is less than 1 cm in extent, this represents intestinal metaplasia. MICROSCOPIC DESCRIPTION Slides are reviewed. GROSS DESCRIPTION A. Received in formalin in a container labeled with the patient's name, date of , and distal esophagus biopsy are multiple small dunlap-pink fragments of mucosal tissue measuring 0.6 x 0.6 x 0.3 cm in aggregate. Submitted in toto in A1. [facility] 08-09-2024 [facility]:[id number], [id number] ADDENDUM ADDENDUM ADDENDUM ADDENDUM ADDENDUM ADDENDUM ADDENDUM ADDENDUM ADDENDUM 08/13/2024 15:44 ADDENDUM 08/13/2024 15:44 ADDENDUM 08/13/2024 15:44 ADDENDUM 08/13/2024 15:44 ADDENDUM 08/13/2024 15:44 The PASD stain is negative for fungal organisms. All matched controls reacted appropriately. These tests were developed and their performance characteristics determined by [facility]. They may not have been cleared or approved by the [place]. Food and Drug Administration. The FDA has determined that such clearance or approval is not necessary.? The above immunohistochemical/dualISH?markers are ordered and reviewed by the Pathologist.
[2024-08-08] MEDS: Lactated Ringers 1,000 ML 15 ML IV (16:00)
--- NOTE | 2024-08-08 16:11 | PCM.PRE.AN2 ---
ASA Classification* ASA Classification ASA Classification: 3 Assessment & Plan Anesthesia* Anesthesia Assessment Anesthesia Assessment: Discussed sedation and/or anesthesia options, risks, benefits, and alternatives with patient/parents/legal guardian/POA. Questions invited. The patient/parents/legal guardian/POA seems to understand and agrees to proceed with anesthesia plan. Reviewed the physical assessment, medical history, allergy history and patient home medications list prior to surgery/procedure/anesthetic and documented any changes. Performed airway and anesthesia risk assessments. Anesthesia Type Anesthesia Type: MAC History Source History Obtained from:: Patient and Chart Anesthesia Focused Assessment* Temperature: 98.5 F Pulse Rate: 92 Blood Pressure: 102/63 Respiratory Rate: 16 Pulse Ox: 94 Oxygen Delivery Method: Room Air Oxygen Flow Rate (L/min): 1 Airway Assessment Mouth opens: >3 cm Mallampati Score: III Teeth Condition: Intact Neck Range of motion (ROM): Limited ROM (Slight decrease in extension) Focused Labs Anesthesia Preop lab: CBC WBC 5.8 K/mm3 (4.4-11.0) 08/08/24 05:15 08/08/24 RBC 4.48 M/mm3 (4.6-6.2) L 08/08/24 05:15 08/08/24 Hgb 13.6 g/dL (13.0-16.5) 08/08/24 05:15 08/08/24 Hct 39.5 % (40-54) L 08/08/24 05:15 08/08/24 Plt Count 249 K/mm3 (150-450) 08/08/24 05:15 08/08/24 CHEMISTRY Potassium 3.3 mmol/L (3.3-5.1) 08/08/24 05:15 08/08/24 Sodium 134 mmol/L (133-145) 08/08/24 05:15 08/08/24 Magnesium 2.2 mg/dL (1.5-2.2) 08/07/24 16:59 08/07/24 Phosphorus 2.6 mg/dL (2.7-4.5) L 08/08/24 05:15 08/08/24 BUN 8 mg/dL (4-19) 08/08/24 05:15 08/08/24 Creatinine 0.40 mg/dL (0.70-1.20) L 08/08/24 05:15 08/08/24 Glucose 90 mg/dL (70-99) 08/08/24 05:15 08/08/24 TSH 0.905 uIU/mL (0.300-4.200) 08/07/24 16:59 08/07/24 COAG Pre-Assessment Diagnosis/Proposed Procedure Planned Operative Procedure(s): Esophagogastroduodenoscopy. 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 When Was Last Pacemaker Check QUESTION #4 FULL TEXT: You/Your Family Experience fever (hyperthermia) with Anesthesia Last Oral Intake Last Oral intake: Last Oral Intake NPO since 00:00 08/08/24 06:18 Meds taken in AM with sips of No 08/08/24 06:18 water? Meds patient instructed to take am of surgery PONV PONV - payroll administrative assistant: PONV - payroll administrative assistant Female HX of Motion Sickness HX of N/V After Surgery Non-Smoker Duration of Surgery greater than 60 minutes Number of Risk Factors PONV Score Height & Weight Height & Weight: Anesthesia: Height & Weight Height 5 ft 6 in 08/08/24 10:17 Weight: 106.7 kg 08/08/24 10:17 Body Mass Index (BMI) 38.0 08/08/24 06:18 Respiratory Assessment Respiratory Assessment - payroll administrative assistant: Respiratory Tract Infection Hx - payroll administrative assistant Hx Respiratory Tract Infection No 08/08/24 07:07 STOP Sleep Apnea STOP Sleep Apnea - payroll administrative assistant: STOP Sleep Apnea - payroll administrative assistant Hx Hypertension No 08/08/24 09:58 Hx Sleep Apnea No 08/07/24 23:23 CPAP BIPAP Do you snore loudly (louder No 08/07/24 23:23 than talking or can be heard Do you often feel tired/ No 08/07/24 23:23 fatigued/ sleepy during daytime? Has anyone observed you stop No 08/07/24 23:23 breathing during sleep? STOP Results Negative 08/07/24 23:23 QUESTION #5 FULL TEXT : Do you snore loudly (louder than talking or can be heard through closed doors)? 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 Specify any problems Hx of Preganancy in last 3 N/A 08/07/24 23:23 Months Nurse Filling Out Transfusion RMAIBACH 08/07/24 23:23 & Questions: Date: 08/07/24 08/07/24 23:23 Time: 23:26 08/07/24 23:23 Patient unable to answer at this time (ie. confused, unrespo /Reproduction History /Reproductive History - payroll administrative assistant: /Reproductive Hx- payroll administrative assistant Hx Now No 08/08/24 07:07 Gestational Age (in weeks): EDC: Hx Hx Para Hx Section SAB No 08/08/24 07:07 Active Medications Active Medications: Current Medications Generic Name Dose Route Start Last Admin Trade Name Freq PRN Reason Stop Dose Admin Levetiracetam 1,000 mg in 100 mls @ 400 mls/hr 08/07/24 21:30 08/08/24 10:55 IV Infused Q12 STEVEN Infusion Pantoprazole Sodium 80 mg/ 100 mls @ 10 mls/hr 08/07/24 23:02 08/08/24 15:32 Sodium Chloride CONT INF 0 mls/hr Q10H STEVEN Infusion Sodium Chloride 250 mls @ 15 mls/hr 08/07/24 23:12 IV .[id number] PRN Saline Flush Sodium Chloride 250 mls @ 15 mls/hr 08/07/24 23:12 IV .[id number] PRN Additional IVPB Infusion Lactated Ringer's 1,000 mls @ 15 mls/hr 08/08/24 15:45 IV .Q48H STEVEN Lorazepam 1 mg 08/07/24 23:02 Lorazepam 2 Mg/Ml Wch Syringe IV Q4H PRN PRN SEIZURES Morphine Sulfate 2 mg 08/07/24 23:02 Morphine 2 Mg/Ml Syringe IV Q4H PRN PRN Pain Score 6-10 Ondansetron HCl 4 mg 08/07/24 23:02 Ondansetron 4 Mg/2 Ml Vial IV Q8H PRN PRN NAUSEA/VOMITING Promethazine HCl 25 mg 08/07/24 23:02 Promethazine 25 Mg/Ml Syringe IM Q6H PRN PRN Breakthrough Nausea/Vomiting Sodium Chloride 10 - 40 ml 08/07/24 23:12 08/08/24 10:40 0.9% Saline Lock 10 Ml Syringe IV 10 ml UD PRN Administration SALINE FLUSH PFSH Home Medications ?Medication ?Instructions ?Recorded ?Last Taken ?Type carbamazepine 200 mg tablet 200 mg PO BIDCM 04/14/19 08/07/24 History lorazepam 1 mg tablet 1 mg PO BID 04/14/19 08/07/24 History quetiapine 50 mg tablet 50 mg PO BID 04/14/19 08/07/24 History Allergy/AdvReac Type Severity Reaction Status Date / Time No Known Allergies Allergy Verified 08/07/24 15:35 Surgical History (Updated 08/08/24 @ 16:[address] Saul Bagley MD) Status post hip surgery History of cholecystectomy Social History (Updated 04/24/19 @ 14:28 by Lydia JONES PA-C) Smoking Status: Never smoker Review of Systems (Anesthesia) ROS Narrative System reviewed and no additional complaints, except as documented.
--- NOTE | 2024-08-08 16:52 | EX.PCM.CON.G ---
HPI Consult Data Date of Consult: 08/08/24 HPI Narrative Reason for Consultation: coffee ground emesis HPI Narrative: CAMI COOPER, is a 43 M who presented to the emergency department with complaint of abdominal pain and vomiting. History is from the family is at the bedside. They said that his symptoms started last evening. He has history of cerebral palsy and his mother gives a lot of the history. Apparently he was seen at [facility] this morning and had blood work as well as CT scan imaging. Mother was told that patient had inflammation in his stomach and they started him on a proton pump inhibitor and Carafate. He went home and continued to complain of abdominal pain and vomited. Mother states the vomit is brown with coffee grounds in it. He said no diarrhea. Mother states he had low-grade fever up to 99 7 at home. Denies sick contacts. Patient's had prior cholecystectomy. Patient not anticoagulated. He had a CT scan abdomen pelvis yesterday but it did not show any abnormalities. He is still having nausea vomiting. [facility] Home Medications ?Medication ?Instructions ?Recorded ?Last Taken ?Type carbamazepine 200 mg tablet 200 mg PO BIDCM 04/14/19 08/07/24 History lorazepam 1 mg tablet 1 mg PO BID 04/14/19 08/07/24 History quetiapine 50 mg tablet 50 mg PO BID 04/14/19 08/07/24 History Allergy/AdvReac Type Severity Reaction Status Date / Time No Known Allergies Allergy Verified 08/07/24 15:35 Surgical History Status post hip surgery History of cholecystectomy Social History Smoking Status: Never smoker ROS Constitutional Constitutional: Denies fatigue, fever(s), poor appetite, weight gain or weight loss Gastrointestinal Gastrointestinal: Denies belching, bloating, change in bowel habits, change in stool character, chewing difficulty, coffee ground emesis, constipation, cramping, diarrhea, dyspepsia, dysphagia, early satiety, excessive flatus, fecal incontinence, heartburn, hematemesis, hematochezia, hemorrhoids, loose stools, melena, nausea, odynophagia, rectal bleeding, tenesmus, vomiting or weight changes Physical Exam Const alert and no apparent distress Constitutional Narrative: Obese. General Appearance: cooperative Orientation / Consciousness: confused HEENT normocephalic, head/scalp atraumatic and hearing grossly normal bilaterally HEENT Narrative: Mucous membranes dry. Eyes PERRL, EOMs intact bilaterally and conjunctivae normal Eyes Narrative: Patient has evidence of strabismus. Neck no lymphadenopathy, supple and no JVD Resp normal respiratory effort, no retractions, no use of accessory muscles and clear to auscultation bilaterally Cardio regular rate and regular rhythm GI soft to palpation GI Narrative: Patient mildly tender to palpation over epigastrium with diminished bowel sounds. Auscultation: hypoactive bowel sounds Extremity normal to inspection, full ROM and no clubbing, cyanosis or edema Skin Skin Narrative: Patient has evidence of rash, abscess, wounds or jaundice. Neuro CN's II-XII intact bilaterally, moves all extremities and no focal motor deficits Neuro Narrative: Patient has abnormal speech at baseline. Sensorium / Orientation: awake, alert and oriented to person Psych affect normal Lab / Micro Data 08/08/24 05:15 08/08/24 05:15 Labs: Laboratory Results - last 24 hr 08/07/24 16:52: WBC 8.2, RBC 5.29, Hgb 16.3, Hct 45.2, MCV 85.4, MCH 30.8, MCHC 36.1 H, RDW Std Deviation 35.4, RDW Coeff of Robert 11.5 L, Plt Count 328, MPV 8.9, Immature Gran % (Auto) 0.200, Neut % (Auto) 78.9 H, Lymph % (Auto) 11.4 L, [place] % (Auto) 9.5, Eos % (Auto) 0.0, Baso % (Auto) 0.0, Absolute Neuts (auto) 6.5, Absolute Lymphs (auto) 0.93, Nucleated RBC % 0, Sodium 131 L, Potassium 3.3, Chloride 90 L, Carbon Dioxide 26.3, Anion Gap 15, BUN 7, Creatinine 0.43 L, Estim Creat Clear Calc 252.53 H, Est GFR (MDRD) Non-Af 136, BUN/Creatinine Ratio 17.0, Glucose 113 H, Hemoglobin A1c 5.0, Lactic Acid 1.2, Calcium 9.0, Total Bilirubin 0.60, AST 31, ALT 39, Alkaline Phosphatase 131 H, Troponin T High Sens 13, Total Protein 7.5, Albumin 4.2, Globulin 3.3, Albumin/Globulin Ratio 1.3, Lipase 15 08/07/24 16:52: Lipase 14, Vitamin B12 703, Serum Folate 33.50, Carbamazepine 6.0 08/07/24 16:59: Magnesium 2.2, TSH 0.905 08/07/24 18:01: Urine Color Yellow, Urine Clarity Clear, Urine pH 8.0, Ur Specific [place] 1.010, Urine Protein 30 H, Urine Glucose (UA) Normal, Urine Ketones 150 A*, Urine Occult Blood Negative, Urine Nitrite Negative, Urine Bilirubin Negative, Urine Urobilinogen Normal, Ur Leukocyte Esterase Negative, Urine RBC 0 SEEN, Urine WBC 0 SEEN, Ur Squamous Epith Cells 0 SEEN, Urine Bacteria 0 SEEN, Urine Mucus 0 SEEN 08/08/24 05:15: WBC 5.8, RBC 4.48 L, Hgb 13.6, Hct 39.5 L, MCV 88.2, MCH 30.4, MCHC 34.4, RDW Std Deviation 38.0, RDW Coeff of Robert 11.9, Plt Count 249, MPV 8.4, Immature Gran % (Auto) 0.300, Neut % (Auto) 53.2, Lymph % (Auto) 30.1, [place] % (Auto) 13.8 H, Eos % (Auto) 2.1, Baso % (Auto) 0.5, Absolute Neuts (auto) 3.1, Absolute Lymphs (auto) 1.74, Nucleated RBC % 0, APTT 25.8, Sodium 134, Potassium 3.3, Chloride 98, Carbon Dioxide 26.3, Anion Gap 10, BUN 8, Creatinine 0.40 L, Estim Creat Clear Calc 275.49 H, Est GFR (MDRD) Non-Af 139, BUN/Creatinine Ratio 20.3 H, Glucose 90, Calcium 8.0, Phosphorus 2.6 L, Total Bilirubin 0.50, AST 24, ALT 34, Alkaline Phosphatase 99, Total Protein 6.0, Albumin 3.5, Globulin 2.4, Albumin/Globulin Ratio 1.4 08/08/24 13:44: Blood Type A NEGATIVE, Antibody Screen NEGATIVE Imaging Radiology Impression Abdomen/Pelvis CT 08/07/24 21:17 IMPRESSION: No acute findings in the abdomen and pelvis. OVERALL FINAL ASSESSMENT: . LI-RADS is not meant to be used in patients <18 years or patients with cirrhosis due to congenital hepatic fibrosis or due to vascular disorders, because these patients have a lower chance of developing HCC. Reading Location: [facility] Assessment & Plan Assessment/Plan (1) Acute upper GI bleed: (2) Abdominal pain: QUALIFIERS: Abdominal location: generalized Qualified Code(s): R10.84 - Generalized abdominal pain (3) Nausea and vomiting: QUALIFIERS: Vomiting type: unspecified Qualified Code(s): R11.2 - Nausea with vomiting, unspecified (4) Obesity (BMI 30-39.9): (5) Cerebral palsy: QUALIFIERS: Cerebral palsy type: unspecified type Qualified Code(s): G80.9 - Cerebral palsy, unspecified (6) Seizure disorder: PLAN: Plan 43-year-old gentleman admitted with nausea, vomiting and abdominal pain since last night. Patient had CT imaging in [place] that displayed inflammation in his stomach as per the mother. He was started on PPI and Carafate. Differential diagnosis is a suspected UGIB possibly secondary to gastroparesis from cerebral palsy versus medication for cerebral palsy resulting in erosive esophagitis, Dora-Barros tear, peptic ulcer disease. He should undergo an upper endoscopy evaluate of his GI tract. His family is explained alternatives, risk and benefits include not withstanding bleeding, infection, sepsis, perforation, need for emergent urgent . He will have an ASA of 3. Charges/Coding Visit Charges Inpatient E&M: 92255 Init Hosp L3
--- NOTE | 2024-08-08 17:16 | OP.EGD_ITS ---
Patient Name: Hector Blood Procedure Date: 08/08/2024 4:55 PM Date of : 1980 Age: 43 Procedure: Upper GI endoscopy Indications: Epigastric abdominal pain, Melena Providers: Claudy Mcdaniel DO Referring MD: Bradly Spicer Medicines: Monitored Anesthesia Care Patient Profile: This is a 43 year old male. Refer to note in patient chart for documentation of history and physical. Patient has symptoms of acute vomiting. Complications: No immediate complications. Procedure: Pre-Anesthesia Assessment: - Prior to the procedure, a History and Physical was performed, and patient medications and allergies were reviewed. The patient is competent. The risks and benefits of the procedure and the sedation options and risks were discussed with the patient. All questions were answered and informed consent was obtained. Patient identification and proposed procedure were verified by the physician in the pre-procedure area. Mental Status Examination: alert and oriented. Airway Examination: normal oropharyngeal airway and neck mobility. Respiratory Examination: clear to auscultation. CV Examination: normal. Prophylactic Antibiotics: The patient does not require prophylactic antibiotics. Prior Anticoagulants: The patient has taken no anticoagulant or antiplatelet agents except for NSAID medication. ASA Grade Assessment: II - A patient with mild systemic disease. After reviewing the risks and benefits, the patient was deemed in satisfactory condition to undergo the procedure. The anesthesia plan was to use monitored anesthesia care (MAC). Immediately prior to administration of medications, the patient was re-assessed for adequacy to receive sedatives. The heart rate, respiratory rate, oxygen saturations, blood pressure, adequacy of pulmonary ventilation, and response to care were monitored throughout the procedure. The physical status of the patient was re-assessed after the procedure. After obtaining informed consent, the endoscope was passed under direct vision. Throughout the procedure, the patient's blood pressure, pulse, and oxygen saturations were monitored continuously. The gastroscope was introduced through the mouth, and advanced to the third part of the duodenum. Small bowel enteroscopy was deemed necessary. The upper GI endoscopy was accomplished without difficulty. The patient tolerated the procedure well. Scope In: 5:08:01 PM Scope Out: 5:12:21 PM Total Procedure Duration Time 0 hours 4 minutes 20 seconds Findings: LA Grade C (one or more mucosal breaks continuous between tops of 2 or more mucosal folds, less than 75% circumference) esophagitis was found 34 to 40 cm from the incisors. Biopsies were taken with a cold forceps for histology. Verification of patient identification for the specimen was done. Estimated blood loss was minimal. No gross lesions were noted in the entire examined stomach. No gross lesions were noted in the entire examined duodenum. Impression: - LA Grade C erosive esophagitis. Biopsied. - No gross lesions in the entire stomach. - No gross lesions in the entire examined duodenum. Recommendation: - [facility]. - Resume previous diet. - Continue present medications. - Await pathology results. Procedure Code(s): --- Professional --- 51279, Small intestinal endoscopy, enteroscopy beyond second portion of duodenum, not including ileum; with biopsy, single or multiple CPT copyright 2021 [employer]. All rights reserved. The codes documented in this report are preliminary and upon financial reserve clerk review may be revised to meet current compliance requirements. Claudy Mcdaniel DO 08/08/2024 5:16:02 PM This report has been signed electronically. Number of Addenda: 0 Note Initiated On: 08/08/2024 4:55 PM
--- NOTE | 2024-08-08 17:16 | OP.CCLET_ITS ---
08/08/2024 Rodolfo Galvez Re : Upper GI endoscopy procedure for Hector Galindo This procedure was performed on August. My impressions and recommendations are as follows: Impressions : - LA Grade C erosive esophagitis. Biopsied. - No gross lesions in the entire stomach. - No gross lesions in the entire examined duodenum. Recommendations : - [facility]. - Resume previous diet. - Continue present medications. - Await pathology results. My findings are described in the full procedure note, which is enclosed. If I can be of further assistance, please feel free to contact me at . Sincerely, Claudy Mcdaniel, 08/08/2024 5:16:02 PM This report has been signed electronically.
--- NOTE | 2024-08-08 17:23 | PCM.POST.ANE ---
Anesthesia: Postop Eval I Current Vital Signs Temperature: 98.6 F Pulse Rate: 86 Blood Pressure: 92/69 Respiratory Rate: 18 Pulse Ox: 93 Oxygen Delivery Method: Room Air Assessment Airway patent: Yes Spontaneous unlabored respirations: Yes Mental status: Awake and Calm nausea: No Vomiting: No Anesthesia Complication: No Fluid Hydration Crystalloid volume administer (ml): 400 Total IV fluid infused: 400 Progress Note Anesthesia document: Postop Eval 1 completed: Yes
--- NOTE | 2024-08-08 18:31 | PCM.POSTANE2 ---
Anesthesia Postop Eval I Sum Postop Eval Completion status Anesthesia document: Postop Eval 1 completed: Yes Anesthesia Postop Eval I Summary Anesthesia Postop Eval I Summary: Anesthesia Postop Eval I: Assessment Summary Airway patent Yes 08/08/24 17:24 Spontaneous unlabored Yes 08/08/24 17:24 respirations Mental status Awake,Calm 08/08/24 17:24 nausea No 08/08/24 17:24 Vomiting No 08/08/24 17:24 Anesthesia Postop Eval I: Fluid Summary Crystalloid volume administer 400 08/08/24 17:24 (ml) Colloids volume administered ( ml) Blood Product volume administered (ml) Total IV fluid infused 400 08/08/24 17:24 Anesthesia Postop Eval I: Summary Notes Anesthesia Complication No 08/08/24 17:24 Anesthesia Complication Comment: Post-operative progress note Anesthesia: Postop Eval II Evaluation Mental status: Awake and Calm Pain Level: 0 nausea: No Vomiting: No Complications Anesthesia Complication: No
[2024-08-08] MEDS: Na Biphos/Potassium Phosphate PACKET 1 PACKET PO ×2 (18:33→22:35)
[2024-08-08] MEDS: Pantoprazole Sodium 40 MG in 0.9% Normal Saline (100mL MB+) 100 ML 330 MG IV (22:35)
[2024-08-08] MEDS: levETIRAcetam IV 100 ML 400 MG IV (22:58)
[2024-08-08] MEDS: MELATONIN 3 MG TABLET 6 MG PO (23:43)
[2024-08-09 03:00] VITALS: PULSE 76
[2024-08-09 04:50] LABS: Absolute Lymphocyte Count 1.49 X10^3/uL (0.83-4.51); Absolute Neutrophil Count 3.1 X10^3/uL (2.0-7.7); Basophil# 0.04 X10^3/uL; Basophil% 0.7 % (0-1); Eosinophil# 0.16 X10^3/uL; Hematocrit 36.9 % (40-54); Hemoglobin 12.6 g/dL (13.0-16.5); Lymphocyte # 1.49 X10^3/ul (0.83-4.51); Lymphocyte % 27.6 % (19-41); Mean Corp Hgb Conc 34.1 g/dL (32-36); Mean Corpuscular Hgb 30.4 pg (27.0-32.0); Mean Corpuscular Volume 89.1 fL (80-94); Mean Platelet Vol. 8.5 fl (6.2-12.0); Monocyte# 0.55 X10^3/uL; Monocyte% 10.2 % (0-10); NRBC Flagged by Analyzer 0 % (0-5); Neutrophil # 3.14 X10^3/uL (2.7-7.7); Neutrophil % 58.1 % (47-70); Platelet Count 221 K/mm3 (150-450); RBC Distribution Width CV 11.7 % (11.6-14.6); RBC Distribution Width SD 37.7 fl (35.1-43.9); Red Blood Count 4.14 M/mm3 (4.6-6.2); White Blood Count 5.4 K/mm3 (4.4-11.0)
[2024-08-09 05:18] LABS: Anion Gap 8 (5-15); BUN 5 mg/dL (4-19); BUN/Creat Ratio 15.4 RATIO (10-20); Calcium,Total 7.9 mg/dL (7.6-11.0); Carbon Dioxide 26.3 mmol/L (21.0-32.0); Chloride 102 mmol/L (98-108); EST Glomerular Filtration Rate 153 (>60); Estimated Creatinine Clearance 367.32 ml/min (50-250); Glucose 86 mg/dL (70-99); Phosphorus 2.5 mg/dL (2.7-4.5); Potassium 3.3 mmol/L (3.3-5.1); Sodium Level 137 mmol/L (133-145)
[2024-08-09 05:26] VITALS: BMI 39.3
[2024-08-09 05:51] VITALS: BP 121/86; PULSE 70; RESP 18; TEMP 36.7; O2SAT 97
[2024-08-09] MEDS: Na Biphos/Potassium Phosphate PACKET 1 PACKET PO (05:58)
--- NOTE | 2024-08-09 09:51 | DCINST_ITS ---
Discharge Instructions Diet Discharge Diet: Light diet - advance as tolerated and Soft diet DC O2, CPAP, BIPAP needs Home O2 Discharge instructions: No Dressing / Incision Discharge Activity: Return to Normal Activity and May Not Drive Weight Bearing Status: Weight bearing as tolerated Dressing / Incision Call your doctor if you observe: Fever of 101 or Higher, Coldness, Increased Pain, Numbness or Tingling, Change in Color, Inability to urinate, Inability to have a bowel movement, Shortness of breath, Dizziness, Fainting spells, Swelling in the ankles, Chest pain, Prolonged hiccupping, Increased palpitations (irregular heartbeat) and Calf discomfort Follow Up Care When: IN 2 WEEKS Test Results: Test results from this visit will be discussed in further detail at your follow- up appointment, if applicable. Discharge Plan Admission Admit Date/Time: 08/07/24 21:18 Attending Provider: Darwin Senior Primary Care Provider: Sayda Galindo Consulting Providers: Eulogio Valle Discharge Orders/Prescriptions Prescriptions: New potassium, sodium phosphates 280-160-250 mg Powder In Packet 1 packet PO TID 3 Days Qty: 9 0RF pantoprazole [Protonix] 40 mg tablet,delayed release (DR/EC) 40 mg PO DAILY 30 Days Qty: 30 2RF Continued carbamazepine 200 MG tablet 200 mg PO BIDCM lorazepam 1 MG tablet 1 mg PO BID quetiapine 50 MG tablet 50 mg PO BID Referrals / Follow Up: Juan Crenshaw MD [Non-Staff] - Sayda Galindo PA [Primary Care Provider] - Olga Mahan NP-C [Med Staff - [facility] Practice Prof] - Within 2 Weeks Disposition Disposition (needs filled in before D/C Order can be placed): DC/Tx to Another Type of HCF
--- NOTE | 2024-08-09 10:03 | CASEMGMT ---
AMPARO spoke with patient's mom Cheryl. AMPARO introduced self and role at [facility]. AMPARO asked Cheryl if there is someone SW should talk with at the halfway. Cheryl did say family will transport patient back to the halfway. Cheryl asked AMPARO to call her son Jose who is patient's healthcare POA. AMPARO called Jose and he gave AMPARO a phone number for Sara [phone] at the halfway. AMPARO called Sara and introduced self. AMPARO let Sara know that patient will be discharged today. Sara asked that d/c orders be faxed to [phone]. Prescriptions should be sent to [facility] in [place]. Sara said it is not necessary for AMPARO to contact her with a d/c time. Plan: d/c back to halfway. Family will transport. Susi WHITMORE
[2024-08-09 10:11] VITALS: BP 136/87; PULSE 79; RESP 20; TEMP 36.6; O2SAT 94
[2024-08-09] MEDS: 0.9% Saline Lock 10 ML Syringe IV (10:13)
[2024-08-09] MEDS: Pantoprazole Sodium 40 MG in 0.9% Normal Saline (100mL MB+) 100 ML 330 MG IV (10:15)
[2024-08-09] MEDS: Potassium Chloride Oral Tablet 20 MEQ 40 MEQ PO ×2 (10:18→12:37)
[2024-08-09] MEDS: levETIRAcetam IV 100 ML 400 MG IV (10:18)
--- NOTE | 2024-08-09 10:28 | DS.PCM_ITS ---
Providers Date of Admission: 08/07/24 Date of Discharge: 08/09/24 Primary Care Physician: ROBERT Galvez Consultations 08/07/24 23:02 Consult: Gastroenterology Routine Consulting Provider: [facility] Reason for Consult: Abd Pain, N/V and Coffee-Ground Emesis. EMERGENT Consult: No MD Notified: Yes Date Notified: 08/07/24 Time Notified: 21:18 Method of Notification: ED Physician Initiated Reason For Visit: ABDOMINAL PAIN, N/V WITH COFFEE-GROUND EMESIS Diagnosis Discharge Diagnosis (1) Acute upper GI bleed: Status: Acute Code(s): K92.2 - Gastrointestinal hemorrhage, unspecified (2) Abdominal pain: Status: Acute Code(s): R10.9 - Unspecified abdominal pain Qualifiers: Abdominal location: generalized Qualified Code(s): R10.84 - Generalized abdominal pain (3) Nausea and vomiting: Status: Acute Code(s): R11.2 - Nausea with vomiting, unspecified Qualifiers: Vomiting type: unspecified Qualified Code(s): R11.2 - Nausea with vomiting, unspecified (4) Obesity (BMI 30-39.9): Status: Acute Code(s): E66.9 - Obesity, unspecified (5) Cerebral palsy: Status: Acute Code(s): G80.9 - Cerebral palsy, unspecified Qualifiers: Cerebral palsy type: unspecified type Qualified Code(s): G80.9 - Cerebral palsy, unspecified (6) Seizure disorder: Status: Acute Code(s): G40.909 - Epilepsy, unspecified, not intractable, without status epilepticus Plan 43-year-old gentleman admitted with nausea, vomiting and abdominal pain since last night. History of CP and mother is a caregiver. Patient had CT imaging [place] and probably has inflammation in his stomach as per the mother. He was started on PPI and Carafate. His vomiting is a brownish/coffee colored. No diarrhea. No confusion. # From December 21. Suspected UGIB; with Abdominal Pain, Nausea and Vomiting with 'Coffee- Ground' Emesis -patient has been in PCU. On IV PPI every [address] Mcdaniel. Plan for EGD. CT abdomen done here does not show acute intra- abdominal abnormality. H&H 13.6/39%. Platelet count normal 249K. 5/9: EGD on 08/08 as mentioned below Impressions : - LA Grade C erosive esophagitis. Biopsied. - No gross lesions in the entire stomach. - No gross lesions in the entire examined duodenum. Patient discharged on pantoprazole 40 mg daily. Follow-up in GI office in 2 weeks for biopsy report. 2. Obesity; with BMI of 39.3 this admission complicating #1 - Weight loss will be recommended. Check TSH. This complicates his case and may hamper recovery. 3. Cerebral Palsy; with patient chronically in wheelchair at baseline with risk of aspiration PT and Case Management to evaluate and treat in AM and to help with discharge planning with help appreciated in advance. 08/09: Patient has other social issues including transition to new alf and patient and her mother is trying to adapt. 4. Seizure disorder; on carbamazepine plus lorazepam BID-patient on lorazepam and Obesity dermatome. 5. Depression; on quetiapine - Restart this agent when patient can tolerate oral intake. 6. History of acute cholecystitis with cholelithiasis; s/p cholecystectomy - Noted. 7. Mild hyponatremia: Sodium 131, improved to 134. Mild hypophosphatemia. 8. DVT prophylaxis - SCD's Discharge medication reconciliation done. Discharge follow-up instructions completed. Discharge process discussed with the patient and all questions were answered to patient's satisfaction. Follow with PCP in 1 to 2 weeks Total time spent, exact 35 minutes on discharge meds reconciliation, examination, coordination of care with nurses and ancillary staff, review of imaging and blood test and discussion with the patient on follow-up instructions. Medications at Discharge Home Medications carbamazepine 200 mg tablet 200 mg PO BIDCM 04/14/19 lorazepam 1 mg tablet 1 mg PO BID 04/14/19 quetiapine 50 mg tablet 50 mg PO BID 04/14/19 pantoprazole 40 mg tablet,delayed release (Protonix) 40 mg PO DAILY 1 month #30 tabs 08/09/24 potassium, sodium phosphates 280 mg-160 mg-250 mg oral powder packet 1 packet PO TID 3 days #9 ea 08/09/24 Physical Exam Narrative Seen and examined. Patient is accompanied by his mother patient is MRDD with history of cerebral palsy. Had some problem like burping. Stomach pain is better after EGD. Had problem with swallowing big pills, spicy or oily food. Advised bland diet/soft and chew food for next 1 to 2 weeks. Physical exam General: Awake, orientation. On baseline minimal language function with incomprehensible sounds/words. Obesity grade 2 BMI 38.0 kg/m? HEENT: Atraumatic, PERRLA, EOMI, Normocephalic. Oral: Wide neck. Deep oropharyngeal structures could not be visualized Neck: Supple, No JVD, Negative Carotid Bruits Chest wall/Lungs: Air entry diminished in bilateral lung bases. No crepitation/rhonchi Cardiovascular: Regular rate and rhythm, Normal S1,S2, No M/G/R Abdomen: Bowel Sounds Present, Soft, Non Tender, Non-Distended : No dysuria. No renal angle tenderness. No suprapubic tenderness. Extremities: Mild pedal edema, Capillary Refill Less than 3 Seconds Skin: No rashes, No breakdown Musculoskeletal: Lower extremity contracted at knee and hip joints. Patient bedbound. Neurological: Cranial nerves II-XII grossly intact, DTR 2+/4. No acute focal neurological deficit. Psych/Mental Status: Flat affect.. Weight / BMI Weight Weight: 243 lb 13.3 oz Body Mass Index (BMI) 39.3 ABG / Lab / Microbiology Data 08/09/24 04:04 08/09/24 04:04 Laboratory: Laboratory Results - last 24 hr 08/08/24 13:44: Blood Type A NEGATIVE, Antibody Screen NEGATIVE 08/09/24 04:04: WBC 5.4, RBC 4.14 L, Hgb 12.6 L, Hct 36.9 L, MCV 89.1, MCH 30.4, MCHC 34.1, RDW Std Deviation 37.7, RDW Coeff of Robert 11.7, Plt Count 221, MPV 8.5, Immature Gran % (Auto) 0.400, Neut % (Auto) 58.1, Lymph % (Auto) 27.6, [place] % (Auto) 10.2 H, Eos % (Auto) 3.0, Baso % (Auto) 0.7, Absolute Neuts (auto) 3.1, Absolute Lymphs (auto) 1.49, Nucleated RBC % 0, Sodium 137, Potassium 3.3, Chloride 102, Carbon Dioxide 26.3, Anion Gap 8, BUN 5, Creatinine 0.30 L, Estim Creat Clear Calc 367.32 H, Est GFR (MDRD) Non-Af 153, BUN/Creatinine Ratio 15.4, Glucose 86, Calcium 7.9, Phosphorus 2.5 L D/C Instructions Discharge Diet: Light diet - advance as tolerated and Soft diet Weight Bearing Status: Weight bearing as tolerated Call your doctor if you observe: Fever of 101 or Higher, Coldness, Increased Pain, Numbness or Tingling, Change in Color, Inability to urinate, Inability to have a bowel movement, Shortness of breath, Dizziness, Fainting spells, Swelling in the ankles, Chest pain, Prolonged hiccupping, Increased palpitations (irregular heartbeat) and Calf discomfort DC O2, CPAP, BIPAP Needs Home O2 Discharge instructions: No When: IN 2 WEEKS Meaningful Use Info Meaningful Use Meaningful Use Diagnoses (Choose all that apply): None applicable Ischemic Stroke Statin Dosing Therapy Reference: STATIN DOSE THERAPY REFERENCE: * Patients > 75 years receive moderate or high dose statin therapy. * Patients 75 years or YOUNGER should receive HIGH intensity statin dose unless contraindicated. You will be required to document reason for non-treatment if statin daily dose does not meet guidelines. HIGH DOSE STATIN THERAPY DAILY Atorvastatin > than or = to 40 mg Rosuvastatin > than or = to 20 mg Amlodipine + Atorvastatin > than or = to 2.5/40 mg Ezetimibe + Simvastatin 10/80 mg Simvastatin 80mg Discharge Plan Admission Admit Date/Time: 08/07/24 21:18 Attending Provider: Darwin Senior Primary Care Provider: Sayda Galindo Consulting Providers: Eulogio Valle Discharge Orders/Prescriptions Prescriptions: New potassium, sodium phosphates 280-160-250 mg Powder In Packet 1 packet PO TID 3 Days Qty: 9 0RF pantoprazole [Protonix] 40 mg tablet,delayed release (DR/EC) 40 mg PO DAILY 30 Days Qty: 30 2RF Continued carbamazepine 200 MG tablet 200 mg PO BIDCM lorazepam 1 MG tablet 1 mg PO BID quetiapine 50 MG tablet 50 mg PO BID Referrals / Follow Up: Juan Crenshaw MD [Non-Staff] - Olga Mahan NP-C [Med Staff - [facility] Practice Prof] - Within 2 Weeks Sayda Galindo PA [Primary Care Provider] - Disposition Disposition (needs filled in before D/C Order can be placed): DC/Tx to Another Type of HCF Charges/Coding Visit Charges Inpatient E&M: 00295 Disch Hosp >30min
--- NOTE | 2024-08-09 11:05 | CASEMGMT ---
AMPARO faxed discharge summary and instructions [facility]. Susi WHITMORE
--- NOTE | 2024-08-09 11:11 | PHA.DC.MR.R ---
Pharmacy [facility] Med Reconciliation Pharmacy Service has performed discharge medication reconciliation for this patient. The patient's discharge medication list was reviewed for discrepancies and discrepancies were resolved. Medications at Discharge Home Medications carbamazepine 200 mg tablet 200 mg PO BIDCM 04/14/19 lorazepam 1 mg tablet 1 mg PO BID 04/14/19 quetiapine 50 mg tablet 50 mg PO BID 04/14/19 pantoprazole 40 mg tablet,delayed release (Protonix) 40 mg PO DAILY 1 month #30 tabs 08/09/24 potassium, sodium phosphates 280 mg-160 mg-250 mg oral powder packet 1 packet PO TID 3 days #9 ea 08/09/24
--- NOTE | 2024-08-09 14:30 | CHAPLAIN ---
Type of Pastoral Visit _x__ Initial Visit ___ Follow-up Visit ___ On-call Visit ___ General Patient Visit ___ Spiritual Assessment ___ Family Conference ___ Bereavement ___ Rapid Response ___ Code Blue ___ Other (describe below) Pastoral Care Referral From ___ Patient _x__ Family ___ Nurse ___ Physician ___ Environmental Health And Safety Intern ___ Head Tennis Professional ___ Other (describe below) Sacrament/Intervention _x__ Active listening ___ Anointing ___ Religious ___ Bereavement ___ Communion ___ Olive exploration ___ ___ Life review _x__ Prayer ___ Reconciliation ___ Sacrament of Sick _x_ Supportive presence ___ Wedding ___ Other (describe below) Pastoral Comments patient is developmentally disabled but follows instructions and looks at the shoe shanker; pt's mother is with him; pt's mother has been seen by this shoe shanker as well and she gives updates on her cancer recovery success; pt is offered calming presence as mother explains that he will be moving to a new residential that 'hopefully will work out better than the last one'; mother admits that pt has nervous feelings for his hospital procedure and for his transfer to a new place to live; prayer is welcomed and sought by these two;
--- NOTE | 2024-08-09 14:54 | NURSING ---
Report called to [facility].
[2024-08-12 17:08] LABS: Lamotrigine (Lamictal) Level < 1.0 ug/mL (2.0-20.0)
== END 2024-08-09 15:32 | disposition home or self-care (01) | DRG 243 ==
LOC: ED 21:08 → PCU 21:54
PROVIDERS: Anesthesiology; Internal Medicine Gastroenterology; Admitting Provider Internal Medicine; Emergency Provider Emergency Medicine; Referring Provider Emergency Medicine; Visit Provider Internal Medicine
PROC: 0DJ08ZZ Inspection of Upper Intestinal Tract, Via Natural or Artificial Opening Endoscopic (ICD-10-PCS; CPT 43235; principal; 2024-08-08 15:25)
DX: K20.81 Other esophagitis with bleeding (principal); E87.1 Hypo-osmolality and hyponatremia; K92.2 Gastrointestinal hemorrhage, unspecified; G40.909 Epilepsy, unspecified, not intractable, without status epilepticus; G80.9 Cerebral palsy, unspecified; F32.A Depression, unspecified; E66.9 Obesity, unspecified; K56.41 Fecal impaction; R11.2 Nausea with vomiting, unspecified; R10.84 Generalized abdominal pain; N32.89 Other specified disorders of bladder; Z68.39 Body mass index [BMI] 39.0-39.9, adult; Z90.49 Acquired absence of other specified parts of digestive tract; Z79.899 Other long term (current) drug therapy
CPT/HCPCS: 36415; 74177; 80048; 80053; 80156; 81001; 82542; 82607; 82746; 83036; 83605; 83690; 83735; 84100; 84443; 84484; 85025; 85730; 86850; 86900; 86901; 88305; 88312; 93005; 97802; 99284; Q9967; A4216; J2405

== ENCOUNTER 2025-03-31 06:09 | Day surgery (SDC) | payer MEDICAID, SELFPAY ==
[2025-03-31] VITALS (8 sets, daily range): BP systolic 91–141; BP diastolic 61–94; PULSE 79–88; RESP 14–16; TEMP 36.3–36.6; O2SAT 93–97; BMI 31.6
--- NOTE | 2025-03-31 06:19 | PCM.HP.STD ---
HPI - General General Date of Admission: 03/31/25 Date of Service: 03/31/25 HPI Narrative CAMI COOPER, is a 44 M who presents [Chief Complaint: Esophagitis Last office visit 08/23/2024 for follow-up. Patient hospitalized in early August 2024 due to 5 days of vomiting associated with abdominal pain. Past medical history of cerebral palsy and family history of colon cancer. Recommendation to remain upright whenever at her hour eating, no meals 3 hours before bedtime, pantoprazole 40 mg twice a day and famotidine 40 mg in the evening. 08.08.24 EGD: LA Grade C erosive esophagitis. Biopsied. No gross lesions in the entire stomach. No gross lesions in the entire examined duodenum. PATHOLOGY Esophagus, distal, biopsy: * Squamous mucosa with reactive changes, acute inflammation, and rare eosinophils. * A PASD stain for fungal organisms is pending and will be reported in an addendum * Columnar mucosa with goblet cell metaplasia - Olvera tissue. * Negative for dysplasia. OV 02/25/2025 - Feeling well, no further nausea or vomiting - Denies abdominal pain - Continues with pantoprazole, sucralfate and famotidine - Would like to start drinking coffee again [facility] Medical History Anxiety Uses wheelchair Seizures Difficulty swallowing Difficulty chewing History of GI bleed Heartburn Gastric reflux Non-smoker History of edema Hypertension Cerebral palsy Home Medications ?Medication ?Instructions ?Recorded ?Last Taken ?Type quetiapine 50 mg tablet 50 mg PO BID 04/14/19 08/07/24 History famotidine 40 mg tablet 40 mg PO QHS #30 tabs 01/17/25 Unknown Rx pantoprazole 40 mg tablet,delayed 40 mg PO BID #60 tabs 01/17/25 Unknown Rx release ascorbic acid (vitamin C) 500 mg 500 mg PO BID 02/25/25 Unknown History capsule carbamazepine 200 mg tablet 200 mg PO QDAY 02/25/25 Unknown History cholecalciferol (vitamin D3) 125 125 mcg PO QDAY 02/25/25 Unknown History mcg (5,000 unit) capsule hydrochlorothiazide 25 mg tablet 25 mg PO QDAY 02/25/25 Unknown History polyethylene glycol 3350 17 4 g PO QDAY 02/25/25 Unknown History gram/dose oral powder (Miralax) sennosides 8.8 mg/5 mL oral syrup 10 ml PO BID 02/25/25 Unknown History (senna) acetaminophen 650 mg 650 mg PO QHS 03/24/25 Unknown History tablet,extended release aluminum-magnesium hydroxide 500 30 ml PO Q4H PRN PRN heartburn 03/24/25 Unknown History mg-500 mg/5 mL oral suspension carbamazepine 200 mg 400 mg PO .qd 03/24/25 Unknown History tablet,extended release,12 hr nystatin 100,000 unit/gram topical 1 applic topical TID 03/24/25 Unknown History powder triamcinolone acetonide 0.1 % 1 applic topical BID PRN affected 03/24/25 Unknown History topical cream areas Allergy/AdvReac Type Severity Reaction Status Date / Time No Known Allergies Allergy Verified 03/24/25 16:14 Surgical History Status post hip surgery History of cholecystectomy Social History Smoking Status: Never smoker ROS Constitutional Constitutional: Denies fatigue, fever(s), poor appetite, weight gain or weight loss Gastrointestinal Gastrointestinal: Denies belching, bloating, change in bowel habits, change in stool character, chewing difficulty, coffee ground emesis, constipation, cramping, diarrhea, dyspepsia, dysphagia, early satiety, excessive flatus, fecal incontinence, heartburn, hematemesis, hematochezia, hemorrhoids, loose stools, melena, nausea, odynophagia, rectal bleeding, tenesmus, vomiting or weight changes Patient's Goals Of Care . 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 Patient hospitalized in August 2024 due to abdominal pain, nausea and vomiting. EGD consistent with LA grade C erosive esophagitis, normal stomach and normal duodenum. Pathology consistent with acute inflammation and goblet cell metaplasia. Patient feeling well today with no further abdominal pain, nausea or vomiting. He continues with pantoprazole 40 mg twice a day, sucralfate and famotidine. I recommended discontinuing sucralfate at this time. He will undergo repeat EGD to ensure healing of his esophagitis and for repeat biopsy for Olvera's esophagus. - Repeat EGD - Continue pantoprazole and famotidine - Discontinue sucralfate - Follow-up as needed Note: Portions of this note may have been selectively carried forward from previous documentation to ensure continuity and accuracy of the clinical record. All imported information has been reviewed and updated as necessary to reflect the current patient status, findings, and clinical decision-making for this encounter. [employer] speech recognition technical training manager software was used to create portions of this document. Sound alike and misspelled words, as well as other technical training manager errors may be contained in the documentation. 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
[2025-03-31] MEDS: Lactated Ringers 1,000 ML 15 ML IV (06:48)
--- NOTE | 2025-03-31 06:59 | PRE.ANES_ITS ---
ASA Classification* ASA Classification ASA Classification: 3 Assessment & Plan Anesthesia* Anesthesia Assessment Anesthesia Assessment: Discussed sedation and/or anesthesia options, risks, benefits, and alternatives with patient/parents/legal guardian/POA. Questions invited. The patient/parents/legal guardian/POA seems to understand and agrees to proceed with anesthesia plan. Reviewed the physical assessment, medical history, allergy history and patient home medications list prior to surgery/procedure/anesthetic and documented any changes. Performed airway and anesthesia risk assessments. Anesthesia Type Anesthesia Type: MAC History Source History Obtained from:: Patient, Chart, Parent/ Guardian and Significant Other (Parents in the room) Anesthesia Focused Assessment* Temperature: 97.7 F Pulse Rate: 83 Blood Pressure: 141/94 Respiratory Rate: 16 Pulse Ox: 97 Oxygen Delivery Method: Room Air Airway Assessment Mouth opens: >3 cm Mallampati Score: II Teeth Condition: Missing (Dental caries present) Neck Range of motion (ROM): Full ROM Labs Anesthesia Preop lab: CBC WBC, (4.4-11.0) 5.4 K/mm3 08/09/24, 04:04 RBC, (4.6-6.2) 4.14 M/mm3 L 08/09/24, 04:04 Hgb, (13.0-16.5) 12.6 g/dL L 08/09/24, 04:04 Hct, (40-54) 36.9 % L 08/09/24, 04:04 Plt Count, (150-450) 221 K/mm3 08/09/24, 04:04 CHEMISTRY Potassium, (3.3-5.1) 3.3 mmol/L 08/09/24, 04:04 Sodium, (133-145) 137 mmol/L 08/09/24, 04:04 Magnesium, (1.5-2.2) 2.2 mg/dL 08/07/24, 16:59 Phosphorus, (2.7-4.5) 2.5 mg/dL L 08/09/24, 04:04 BUN, (4-19) 5 mg/dL 08/09/24, 04:04 Creatinine, (0.70-1.20) 0.30 mg/dL L 08/09/24, 04:04 Glucose, (70-99) 86 mg/dL 08/09/24, 04:04 TSH, (0.300-4.200) 0.905 uIU/mL 08/07/24, 16:59 COAG Pre-Assessment Diagnosis/Proposed Procedure Planned Operative Procedure(s): EGD Anesthesia History Anesthesia History - bicycle service technician: Anesthesia History - bicycle service technician Hx Hospitalization Yes: 08/09/2024 ABD PAIN 03/25/25 11:26 Any Problems With Anesthesia No 03/25/25 11:26 Cholinesterase deficiency No 03/25/25 11:26 You/Your Family Experience No 03/25/25 11:26 fever (hyperthermia) with Relationship Recent Exposure to Contagious No 03/31/25 06:49 Disease Does patient have nerve No 03/25/25 11:26 stimulator Patient instructed to have device shut off --Does patient have Pacemaker No 03/31/25 06:49 or ICD? When Was Last Pacemaker Check QUESTION #4 FULL TEXT: You/Your Family Experience fever (hyperthermia) with Anesthesia Last Oral Intake Last Oral intake: Last Oral Intake NPO since 21:00 03/31/25 06:49 Meds taken in AM with sips of Yes 03/31/25 06:49 water? Meds patient instructed to see med list 03/31/25 06:49 take am of surgery PONV PONV - bicycle service technician: PONV - bicycle service technician Female No 03/25/25 11:26 HX of Motion Sickness No 03/25/25 11:26 HX of N/V After Surgery No 03/25/25 11:26 Non-Smoker Yes 03/25/25 11:26 Duration of Surgery greater No 03/25/25 11:26 than 60 minutes Number of Risk Factors 1 03/25/25 11:26 PONV Score Low Risk 03/25/25 11:26 Height & Weight Height & Weight: Anesthesia: Height & Weight Height 5 ft 8 in 03/31/25 06:49 Weight: 94.347 kg 03/31/25 06:49 Body Mass Index (BMI) 31.6 03/31/25 06:49 Respiratory Assessment Respiratory Assessment - bicycle service technician: Respiratory Tract Infection Hx - bicycle service technician Hx Respiratory Tract Infection No 03/25/25 11:26 STOP Sleep Apnea STOP Sleep Apnea - bicycle service technician: STOP Sleep Apnea - bicycle service technician Hx Hypertension Yes 03/25/25 11:26 Hx Sleep Apnea No 03/25/25 11:26 CPAP BIPAP Do you snore loudly (louder No 03/25/25 11:26 than talking or can be heard Do you often feel tired/ No 03/25/25 11:26 fatigued/ sleepy during daytime? Has anyone observed you stop No 03/25/25 11:26 breathing during sleep? STOP Results Negative 03/25/25 11:26 QUESTION #5 FULL TEXT : Do you snore loudly (louder than talking or can be heard through closed doors)? Tobacco Use History Tobacco Use History - bicycle service technician: Tobacco Use History - bicycle service technician Tobacco Use Smoking Status Never smoker 03/25/25 11:26 Hx Tobacco Use No 03/25/25 11:26 Years Smoking Packs Smoked per Day Smoking Cessation Date was within the last 15 years Hx Smoking Cessation Date Hx Smoking Cessation Counseling Hematologic Medial History Hematologic Hx - bicycle service technician: Hematologic Medical Hx - ostomy rn Hx of Blood Transfusion No 03/25/25 11:26 Hx of Transfusion in last 3 No 03/25/25 11:26 Months Date of Last Transfusion (if within last 3 months) Ever experience any problems No 03/25/25 11:26 with transfusion(s)? Specify any problems Hx of Preganancy in last 3 N/A 03/25/25 11:26 Months Nurse Filling Out Transfusion [email or web address] 03/25/25 11:26 & Questions: Date: 03/25/25 03/25/25 11:26 Time: 11:26 03/25/25 11:26 Patient unable to answer at this time (ie. confused, unrespo /Reproduction History /Reproductive History - bicycle service technician: /Reproductive Hx- bicycle service technician Hx Now No 03/24/25 16:20 Gestational Age (in weeks): EDC: Hx Hx Para Hx Section SAB No 03/24/25 16:20 Does the father of the baby or his family experience fever w Father of the baby Malignant Hypertension history comment Active Medications Active Medications: Current Medications Generic Name Dose Route Start Last Admin Trade Name Freq PRN Reason Stop Dose Admin Lactated Ringer's 1,000 mls @ 15 mls/hr 03/31/25 06:30 03/31/25 06:48 IV 15 mls/hr .Q48H STEVEN Administration PFSH Medical History Anxiety Uses wheelchair Seizures Difficulty swallowing Difficulty chewing History of GI bleed Heartburn Gastric reflux Non-smoker History of edema Hypertension Cerebral palsy Home Medications ?Medication ?Instructions ?Recorded ?Last Taken ?Type quetiapine 50 mg tablet 50 mg PO BID 04/14/19 05:00 History famotidine 40 mg tablet 40 mg PO QHS #30 tabs Unknown Rx pantoprazole 40 mg tablet,delayed 40 mg PO BID #60 tab s 01/17/25 03/31/25 05:00 Rx release ascorbic acid (vitamin C) 500 mg 500 mg PO BID 5 Unknown History capsule carbamazepine 200 mg tablet 200 mg PO QDAY 02/25/25 05:00 History cholecalciferol (vitamin D3) 125 125 mcg PO QDAY 02/25 Unknown History mcg (5,000 unit) capsule hydrochlorothiazide 25 mg tablet 25 mg PO QDAY 5 Unknown History polyethylene glycol 3350 17 4 g PO QDAY 02/25/25 Unkno wn History gram/dose oral powder (Miralax) sennosides 8.8 mg/5 mL oral syrup 10 ml PO BID 5 Unknown History (senna) acetaminophen 650 mg 650 mg PO QHS 03/24/25 Unkno wn History tablet,extended release aluminum-magnesium hydroxide 500 30 ml PO Q4H PRN PRN heartburn 03/24/25 Unknown History mg-500 mg/5 mL oral suspension carbamazepine 200 mg 400 mg PO .qd 03/24/25 Unkno wn History tablet,extended release,12 hr nystatin 100,000 unit/gram topical 1 applic topical TI D 03/24/25 Unknown History powder triamcinolone acetonide 0.1 % 1 applic topical BID PRN affected 03/24/25 Unknown History topical cream areas Allergy/AdvReac Type Severity Reaction Status Date / Time No Known Allergies Allergy Verified 03/31/25 06:39 Surgical History Status post hip surgery History of cholecystectomy Social History Smoking Status: Never smoker Review of Systems (Anesthesia) ROS Narrative System reviewed and no additional complaints, except as documented.
--- NOTE | 2025-03-31 07:00 | EGD_PTH ---
PATIENT: CAMI COOPER LOC: EN U#:[id number] AGE/SX: 44/M ROOM: RE03/31/[address]: Dr. Claudy Mcdaniel DO : 1980 BED: DIS: 03/31/2025 SPEC #: [id number] RECD: 03/31/25 08:22 STATUS: MEDINA ORTEGA #: [id number] ALO: 03/31/25 07:[address]: Claudy Mcdaniel DEPT: SURGICAL PATHOLOGY RECD BY: Susan Zimmerman ENTERED: 03/31/25 11:09 SP TYPE: EGD BIOPSY OT DR: ROBERT Galvez Tissues: Esophagus, NOS Procedures: Surgery Specimen Level IV HEADER OPERATION: EGD with Biopsies and Dialation PRE-OP DIAGNOSIS: GERD, with esophagitis, Olvera's Esophagus TISSUE SUBMITTED: Distal Esophagus Biopsy MICROSCOPIC DIAGNOSIS A. Esophagus, distal, biopsy: - Squamous mucosa with reactive changes. - Columnar mucosa negative for goblet cell metaplasia. - Negative for dysplasia. MICROSCOPIC DESCRIPTION Slides are reviewed. GROSS DESCRIPTION Received is one container labeled with the patient name and designated distal esophagus biopsy. The specimen consists of three irregular fragments of light dunlap soft tissue that in aggregate measure 1 x 0.3 x 0.2 cm. The specimen is totally submitted in one cassette. CW:03/31/25 CPT:33284
--- NOTE | 2025-03-31 07:25 | OP.EGD_ITS ---
Patient Name: Hector Blood Procedure Date: 03/31/2025 7:05 AM Date of : 1980 Age: 44 Procedure: Upper GI endoscopy Indications: Dysphagia, Heartburn Providers: Claudy Mcdaniel DO Referring MD: Rodolfo Galvez Medicines: Monitored Anesthesia Care Patient Profile: This is a 44 year old male. Refer to note in patient chart for documentation of history and physical. Patient has symptoms of dysphagia with both liquids and solids. His most recent EGD for biopsy. Complications: No immediate complications. Procedure: Pre-Anesthesia Assessment: - Prior to the procedure, a History and Physical was performed, and patient medications and allergies were reviewed. The patient is competent. The risks and benefits of the procedure and the sedation options and risks were discussed with the patient. All questions were answered and informed consent was obtained. Patient identification and proposed procedure were verified by the physician in the pre-procedure area. Mental Status Examination: alert and oriented. Airway Examination: normal oropharyngeal airway and neck mobility. Respiratory Examination: clear to auscultation. CV Examination: normal. Prophylactic Antibiotics: The patient does not require prophylactic antibiotics. Prior Anticoagulants: The patient has taken no anticoagulant or antiplatelet agents except for NSAID medication. ASA Grade Assessment: II - A patient with mild systemic disease. After reviewing the risks and benefits, the patient was deemed in satisfactory condition to undergo the procedure. The anesthesia plan was to use monitored anesthesia care (MAC). Immediately prior to administration of medications, the patient was re-assessed for adequacy to receive sedatives. The heart rate, respiratory rate, oxygen saturations, blood pressure, adequacy of pulmonary ventilation, and response to care were monitored throughout the procedure. The physical status of the patient was re-assessed after the procedure. After obtaining informed consent, the endoscope was passed under direct vision. Throughout the procedure, the patient's blood pressure, pulse, and oxygen saturations were monitored continuously. The gastroscope was introduced through the mouth, and advanced to the second part of duodenum. The upper GI endoscopy was accomplished without difficulty. The patient tolerated the procedure well. Scope In: 7:17:42 AM Scope Out: 7:21:42 AM Total Procedure Duration Time 0 hours 4 minutes 0 seconds Findings: There were esophageal mucosal changes secondary to established short-segment Olvera's disease present in the lower third of the esophagus. The maximum longitudinal extent of these mucosal changes was 4 cm in length. Mucosa was biopsied with a cold forceps for histology in a targeted manner at intervals of 1 cm in the lower third of the esophagus. One specimen bottle was sent to pathology. Verification of patient identification for the specimen was done. Estimated blood loss was minimal. Abnormal motility was noted in the esophagus. The cricopharyngeus was abnormal. There are extra peristaltic waves in the esophageal body. The distal esophagus/lower esophageal sphincter is spastic, but gives up passage to the endoscope. Secondary peristaltic waves are noted. A guidewire was placed and the scope was withdrawn. Dilation was performed with a Savary dilator with no resistance at 60 Fr. The dilation site was examined and showed mild mucosal disruption. No gross lesions were noted in the entire examined stomach. No gross lesions were noted in the entire examined duodenum. Impression: - Esophageal mucosal changes secondary to established short-segment Olvera's disease. Biopsied. - Abnormal esophageal motility. Dilated. - No gross lesions in the entire stomach. - No gross lesions in the entire examined duodenum. Recommendation: - Discharge patient to home. - Resume previous diet. - Continue present medications. - Await pathology results. Procedure Code(s): --- Professional --- 68254, Esophagogastroduodenoscopy, flexible, transoral; with insertion of guide wire followed by passage of dilator(s) through esophagus over guide wire 83156, 59,51, Esophagogastroduodenoscopy, flexible, transoral; with biopsy, single or multiple CPT copyright 2021 [employer]. All rights reserved. The codes documented in this report are preliminary and upon bottom sprayer review may be revised to meet current compliance requirements. Claudy Mcdaniel DO 03/31/2025 7:25:27 AM This report has been signed electronically. Number of Addenda: 0 Note Initiated On: 03/31/2025 7:05 AM
--- NOTE | 2025-03-31 07:26 | OP.PROVAT_ITS ---
03/31/2025 Rodolfo Galvez Re : Upper GI endoscopy procedure for Hector Galindo This procedure was performed on Monday, March 31, 2025. My impressions and recommendations are as follows: Impressions : - Esophageal mucosal changes secondary to established short-segment Olvera's disease. Biopsied. - Abnormal esophageal motility. Dilated. - No gross lesions in the entire stomach. - No gross lesions in the entire examined duodenum. Recommendations : - Discharge patient to home. - Resume previous diet. - Continue present medications. - Await pathology results. My findings are described in the full procedure note, which is enclosed. If I can be of further assistance, please feel free to contact me at . Sincerely, Claudy Mcdaniel, 03/31/2025 7:25:27 AM This report has been signed electronically.
--- NOTE | 2025-03-31 07:29 | PCM.POST.ANE ---
Anesthesia: Postop Eval I Current Vital Signs Temperature: 97.8 F Pulse Rate: 88 Blood Pressure: 93/64 Respiratory Rate: 16 Pulse Ox: 94 Oxygen Delivery Method: Room Air Assessment Airway patent: Yes Spontaneous unlabored respirations: Yes Mental status: Awake and Calm nausea: No Vomiting: No Anesthesia Complication: No Fluid Hydration Crystalloid volume administer (ml): 400 Total IV fluid infused: 400 Progress Note Anesthesia document: Postop Eval 1 completed: Yes
--- NOTE | 2025-03-31 12:11 | PCM.POSTANE2 ---
Anesthesia Postop Eval I Sum Postop Eval Completion status Anesthesia document: Postop Eval 1 completed: Yes Anesthesia Postop Eval I Summary Anesthesia Postop Eval I Summary: Anesthesia Postop Eval I: Assessment Summary Airway patent Yes 03/31/25 07:30 [email or web address] Spontaneous unlabored Yes 03/31/25 07:30 [email or web address] respirations Mental status Awake,Calm 03/31/25 07:30 [email or web address] nausea No 03/31/25 07:30 [email or web address] Vomiting No 03/31/25 07:30 [email or web address] Anesthesia Postop Eval I: Fluid Summary Crystalloid volume administer 400 03/31/25 07:30 [email or web address] (ml) Colloids volume administered ( ml) Blood Product volume administered (ml) Total IV fluid infused 400 03/31/25 07:30 [email or web address] Anesthesia Postop Eval I: Summary Notes Anesthesia Complication No 03/31/25 07:30 [email or web address] Anesthesia Complication Comment: Post-operative progress note Anesthesia: Postop Eval II Evaluation Mental status: Awake and Calm Pain Level: 1 nausea: No Vomiting: No Complications Anesthesia Complication: No
== END 2025-03-31 08:50 | disposition home or self-care (01) ==
LOC: EN 06:11 → AC 06:12
PROVIDERS: Visit Provider Internal Medicine Gastroenterology
PROC: 0DJ08ZZ Inspection of Upper Intestinal Tract, Via Natural or Artificial Opening Endoscopic (ICD-10-PCS; CPT 43235; principal; 2025-03-31 06:55)
DX: K22.70 Barrett's esophagus without dysplasia (principal); K21.00 Gastro-esophageal reflux disease with esophagitis, without bleeding; I10 Essential (primary) hypertension; Z79.899 Other long term (current) drug therapy; K22.4 Dyskinesia of esophagus
CPT/HCPCS: 43248; 43239; 88305; C1769; J2405